=== PATIENT | female | born 1960 | race Caucasian/White ===

== ENCOUNTER → 2017-04-30 | Outpatient (CLI) | payer OTHER ==
[~2017-04-30] MED LIST: ALBU.083IS IH; ALBU90OI61 INH; AZIT250 PO; Albuterol2.5 MG/0.5 INH; BECL80OI INH; BUDE6HFA INH; CEPH500 PO; CHLO10 PO; CITA20 PO; Celexa40 MG PO; Diclofenac Pota50 MG PO; EPIPEN 2-P0.3 MG/0.3 IJ; ERGO50000 PO; GABA300 PO; HYDACE5 PO; HYDR1TAB94 PO; IBUP600 PO; LISI20 PO; LORA10 PO; LORA10ER PO; METF500 PO; MONT10T PO; MULVITMIND PO; Motion Sickness25 M1 PO; NAPR500 PO; OMEP40CA12 PO; PRED20 PO; Prednisone20 MG PO; SULTRIDS PO; TRAZ50 PO; WARF5 PO; ZESTORETIC 20-121 EA PO
== END | disposition home or self-care (01) ==
LOC: OLS 14:29
DX: N89.8 Other specified noninflammatory disorders of vagina (principal)
CPT/HCPCS: 87070; 87205

== ENCOUNTER → 2017-05-14 | Outpatient (CLI) | payer OTHER ==
[2017-05-17 10:18] LABS: HPV Genotype 16 Not Detected (NOTDET); HPV Genotype 18 Not Detected (NOTDET)
[2017-05-23 09:35] LABS: HPV High Risk Other Not Detected (NOTDET)
== END | disposition home or self-care (01) ==
LOC: OLS 14:06
PROVIDERS: Nurse Practitioner Women's Health
DX: Z12.4 Encounter for screening for malignant neoplasm of cervix (principal); Z91.89 Other specified personal risk factors, not elsewhere classified
CPT/HCPCS: 87624; G0123

== ENCOUNTER → 2017-08-22 | Outpatient (CLI) | payer OTHER | END | disposition home or self-care (01) | LOC: OLS 17:04 → LAB SHORT 17:04 | DX: N89.8 Other specified noninflammatory disorders of vagina (principal) | CPT/HCPCS: 87070; 87205 ==

== ENCOUNTER → 2017-09-05 | Outpatient (CLI) | payer OTHER | END | disposition home or self-care (01) | LOC: LAB 16:42 → LAB SHORT 16:42 | DX: N89.8 Other specified noninflammatory disorders of vagina (principal) | CPT/HCPCS: 87070; 87205 ==

== ENCOUNTER → 2018-09-19 | Outpatient (CLI) | payer MEDICARE, OTHER ==
[~2018-09-19] MED LIST changes: +ACET325 PO; +ALBU2.5V5 INH; +ATOR10 PO; +Aspirin EC81 MG PO; +CARV3.125; +CARV6.25 PO; +FERSU300 PO; +FURO20 PO; +MAGNESIUM400 M1 PO; +Micro-K10 MEQ PO; +Multivitamin1 EAC1 PO; +OXYC10TA19 PO; +Prilosec Otc20 MG PO; +Prinivil10 MG PO; +SODCHL1 PO
[2018-09-20 16:06] LABS: HPV 16 Negative (Negative); HPV 18 Negative (Negative); HPV OTHER HR TYPES Negative (Negative)
== END | disposition home or self-care (01) ==
LOC: LAB SHORT 13:09 → LAB 13:09
PROVIDERS: Nurse Practitioner Women's Health
DX: Z12.4 Encounter for screening for malignant neoplasm of cervix (principal); Z91.89 Other specified personal risk factors, not elsewhere classified
CPT/HCPCS: 87624; G0123

== ENCOUNTER → 2018-10-05 | Outpatient (CLI) | payer MEDICARE, OTHER ==
[2018-10-05 16:07] LABS: Source, Urine Clean Catch
[2018-10-05 16:39] LABS: Blood, Urine Neg (Neg); Glucose Qualitative, Urine Neg (Neg); Ketones, Urine Neg (Neg); Leukocyte Esterase, Urine 1+ (Neg); Nitrite, Urine Neg (Neg); Protein, Urine 2+ (Neg); Specific Gravity, Urine 1.015 (1.003-1.022); Urobilinogen, Urine 2+ (Normal)
[2018-10-05 16:45] LABS: Appearance, Urine Clear (Clear); Bilirubin, Urine 1+ (Neg); Color, Urine Amber (P-Yellow)
[2018-10-05 16:49] LABS: Bacteria Many /hpf; Squamous Epithelial Cells Many /hpf (Few)
== END | disposition home or self-care (01) ==
LOC: LAB 13:15 → LAB SHORT 13:15
PROVIDERS: Nurse Practitioner
DX: M62.81 Muscle weakness (generalized) (principal)
CPT/HCPCS: 81001

== ENCOUNTER → 2018-10-05 | Outpatient (CLI) | payer MEDICARE, OTHER ==
[2018-10-05 15:01] LABS: BASOPHILS ABSOLUTE AUTO 0.06 K/mm3 (0.00-0.23); BASOPHILS PERCENT AUTO 1 % (0-2); EOSINOPHILS ABSOLUTE AUTO 0.06 K/mm3 (0.00-0.68); EOSINOPHILS PERCENT AUTO 1 % (0-6); Hematocrit 39.8 % (33.0-51.0); Hemoglobin 13.6 g/dL (11.5-16.0); IMMATURE GRAN ABSOLUTE AUTO 0.03 K/mm3 (0.00-0.10); IMMATURE GRAN PERCENT AUTO 0 % (0-1); LYMPHOCYTES ABSOLUTE AUTO 1.89 K/mm3 (0.84-5.20); LYMPHOCYTES PERCENT AUTO 17 % (21-46); MONOCYTES ABSOLUTE AUTO 0.74 K/mm3 (0.16-1.47); MONOCYTES PERCENT AUTO 7 % (4-13); Mean Corpuscular HGB 32.5 pg (26.0-34.0); Mean Corpuscular HGB Conc 34.2 g/dL (31.5-36.5); Mean Corpuscular Volume 95 fL (80-100); Mean Platelet Volume 8.9 fL (9.1-12.4); NEUTROPHILS ABSOLUTE AUTO 8.36 K/mm3 (1.96-9.15); NEUTROPHILS PERCENT AUTO 75 % (41-73); Platelet Count 283 K/mm3 (150-400); RDW Coefficient Variation 12.5 % (11.7-14.2); RDW Standard Deviation 43.7 fL (35.1-46.3); Red Blood Cell Count 4.19 M/mm3 (3.80-5.20); White Blood Cell Count 11.14 K/mm3 (4.00-11.30)
[2018-10-05 15:14] LABS: Alanine Aminotransfer (ALT/SGP 45 U/L (12-78); Albumin, Blood 3.3 g/dL (3.4-5.0); Albumin/Globulin Ratio 0.8 (0.8-1.8); Alk Phos 121 U/L (50-136); Anion Gap 14 mmol/L (6-16); Aspartate Aminotrans (AST/SGOT 84 U/L (12-37); Bilirubin, Total 1.2 mg/dL (0.1-1.0); Blood Urea Nitrogen 6 mg/dL (8-24); Bun/Creatinine Ratio 10.5 (12.0-20.0); CO2, Blood 21 mmol/L (21-32); Calcium, Blood 8.7 mg/dL (8.5-10.1); Chloride, Blood 98 mmol/L (98-108); Creatinine, Blood 0.57 mg/dL (0.40-1.00); Globulin, Blood 4.2 g/dL (2.2-4.0); Glomerular Filtration Rate >60 (60-); Glucose, Blood 138 mg/dL (70-99); Potassium, Blood 3.1 mmol/L (3.5-5.5); Sodium, Blood 133 mmol/L (136-145); Total Protein, Blood 7.5 g/dL (6.4-8.2)
[2018-10-07 10:13] LABS: Antinuclear Antibody Screen Negative (Negative)
== END | disposition home or self-care (01) ==
LOC: LAB SHORT 14:15 → LAB 14:15
PROVIDERS: Nurse Practitioner
DX: R20.0 Anesthesia of skin (principal); M25.50 Pain in unspecified joint; M62.81 Muscle weakness (generalized)
CPT/HCPCS: 80053; 84443; 85025; 85651; 86038; 86140

== ENCOUNTER 2018-11-10 01:26 | Inpatient (IN) | payer MEDICARE, OTHER ==
[~2018-11-10] VITALS: Ht 162.6 cm; Wt 90.7 kg
[~2018-11-10 01:26] MED LIST changes: -ACET325 PO; -ALBU2.5V5 INH; -ATOR10 PO; -Aspirin EC81 MG PO; -CARV3.125; -CARV6.25 PO; -FERSU300 PO; -FURO20 PO; -MAGNESIUM400 M1 PO; -Micro-K10 MEQ PO; -Multivitamin1 EAC1 PO; -OXYC10TA19 PO; -Prilosec Otc20 MG PO; -Prinivil10 MG PO; -SODCHL1 PO
[2018-11-10] MEDS ORDERED: Prinivil10 MG PO (01:45)
[2018-11-10] MEDS ORDERED: CITA20 PO (01:45)
[2018-11-10] MEDS ORDERED: MONT10T PO (01:45)
[2018-11-10] MEDS ORDERED: ALBU90OI61 INH (01:46)
[2018-11-10] MEDS ORDERED: METF500 PO (01:46)
[2018-11-10] MEDS ORDERED: ALBU2.5V5 INH (01:46)
[2018-11-10] MEDS ORDERED: Prilosec Otc20 MG PO (01:46)
[2018-11-10] MEDS ORDERED: CARV3.125 (01:47)
[2018-11-10] MEDS ORDERED: GABA300 PO (01:47)
[2018-11-10] MEDS ORDERED: Multivitamin1 EAC1 PO (01:47)
[2018-11-10] MEDS ORDERED: Aspirin EC81 MG PO (01:47)
[2018-11-10] MEDS ORDERED: ATOR10 PO (01:47)
[2018-11-10] MEDS ORDERED: FERSU300 PO (01:48)
[2018-11-10 02:11] LABS: BASOPHILS ABSOLUTE AUTO 0.03 K/mm3 (0.00-0.23); BASOPHILS PERCENT AUTO 1 % (0-2); EOSINOPHILS ABSOLUTE AUTO 0.03 K/mm3 (0.00-0.68); EOSINOPHILS PERCENT AUTO 1 % (0-6); Hematocrit 36.9 % (33.0-51.0); Hemoglobin 13.2 g/dL (11.5-16.0); IMMATURE GRAN ABSOLUTE AUTO 0.01 K/mm3 (0.00-0.10); IMMATURE GRAN PERCENT AUTO 0 % (0-1); LYMPHOCYTES ABSOLUTE AUTO 1.92 K/mm3 (0.84-5.20); LYMPHOCYTES PERCENT AUTO 39 % (21-46); MONOCYTES ABSOLUTE AUTO 0.61 K/mm3 (0.16-1.47); MONOCYTES PERCENT AUTO 12 % (4-13); Mean Corpuscular HGB 33.4 pg (26.0-34.0); Mean Corpuscular HGB Conc 35.8 g/dL (31.5-36.5); Mean Corpuscular Volume 93 fL (80-100); Mean Platelet Volume 8.2 fL (9.1-12.4); NEUTROPHILS ABSOLUTE AUTO 2.33 K/mm3 (1.96-9.15); NEUTROPHILS PERCENT AUTO 47 % (41-73); Platelet Count 236 K/mm3 (150-400); RDW Coefficient Variation 13.2 % (11.7-14.2); RDW Standard Deviation 45.5 fL (35.1-46.3); Red Blood Cell Count 3.95 M/mm3 (3.80-5.20); White Blood Cell Count 4.93 K/mm3 (4.00-11.30)
[2018-11-10 02:13] LABS: Source, Urine Clean Catch
[2018-11-10 02:16] LABS: Appearance, Urine Clear (Clear); Bilirubin, Urine Neg (Neg); Blood, Urine 3+ (Neg); Color, Urine Yellow (P-Yellow); Glucose Qualitative, Urine Neg (Neg); Ketones, Urine Neg (Neg); Leukocyte Esterase, Urine Neg (Neg); Nitrite, Urine Neg (Neg); Protein, Urine Neg (Neg); Urobilinogen, Urine NORM (Normal)
[2018-11-10 02:23] LABS: Bacteria Mod /hpf; Red Blood Cells, Urine 0-2 /hpf (0-2); Squamous Epithelial Cells Few /hpf (Few); White Blood Cells, Urine 0-2 /hpf (0-5)
[2018-11-10 02:28] LABS: Ethanol (Alcohol), Blood, Med 194 mg/dL; Salicylate <1.7 mg/dL (2.8-20.0)
[2018-11-10 02:29] LABS: U Amphetamine Screen Not Detected; U Barbituate Screen Not Detected; U Benzodiazapine Screen Not Detected; U Buprenorphine Screen Not Detected; U Cannabinoids Screen Not Detected; U Cocaine Screen Not Detected; U Methadone Screen Not Detected; U Methamphetamine Screen Not Detected; U Opiates Screen Not Detected; U Oxycodone Screen Not Detected; U Phencyclidine Screen Not Detected; U Propoxyphene Screen Not Detected
[2018-11-10 02:37] LABS: Acetaminophen, Random <2.0 ug/mL (10.0-30.0); Alanine Aminotransfer (ALT/SGP 30 U/L (12-78); Albumin, Blood 3.9 g/dL (3.4-5.0); Alk Phos 121 U/L (50-136); Anion Gap 14 mmol/L (6-16); Aspartate Aminotrans (AST/SGOT 42 U/L (12-37); Bilirubin, Total 1.6 mg/dL (0.1-1.0); Blood Urea Nitrogen 3 mg/dL (8-24); Bun/Creatinine Ratio 7.3 (12.0-20.0); CO2, Blood 24 mmol/L (21-32); Calcium, Blood 8.3 mg/dL (8.5-10.1); Chloride, Blood 78 mmol/L (98-108); Creatinine, Blood 0.41 mg/dL (0.40-1.00); Glomerular Filtration Rate >60 (60-); Glucose, Blood 71 mg/dL (70-99); Sodium, Blood 116 mmol/L (136-145); Total Protein, Blood 7.9 g/dL (6.4-8.2)
[2018-11-10 04:22] LABS: Magnesium, Blood 1.2 mg/dL (1.6-2.4); Uric Acid, Blood 3.9 mg/dL (2.6-6.0)
[2018-11-10 04:23] LABS: Phosphorus, Blood 2.4 mg/dL (2.5-4.9); Thyroid Stimulating Hormone 2.04 uIU/mL (0.360-4.800)
[2018-11-10 05:22] LABS: Sodium, Urine, Random 7 mmol/L (20-110)
[2018-11-10 05:30] LABS: Osmolality, Urine 184 mos/kg (15-1400)
[2018-11-10] MEDS ORDERED: OXYC10TA19 PO (05:35)
--- NOTE | 2018-11-10 06:17 | NUR ---
ADMIT/SUMMARY PT ARRIVED AT 0515 VIA STRETCHER FROM ER MEDICAL NO TELE. PT ALERT TO SELF, DATE AND LOCATION AND REPORTING THAT SHE NEEDS TO URINATE. PT HAS BEEN UP TO BSC MULTIPLE TIMES, ORDER FOR STEWART OBTAINED AND PLACED WITH IMMEDIATE RETURN OF 800ML URINE IN BAG. PT CONTINUES TO REPORT THAT SHE NEEDS TO URINATE AND CONTINUES TO ASK TO GET UP TO URINATE. PT REASSURED, SHOW STEWART BAG, CHECKED LORENZO WHICH WAS DRY. PT PERSISTENT, TAB ALARM AND BED ALARM IN PLACE. VSS, AFEBRILE BANANA BAG INFUSING AT 200ML/HR.
[2018-11-10 09:00] LABS: Anion Gap 12 mmol/L (6-16); Blood Urea Nitrogen 2 mg/dL (8-24); Bun/Creatinine Ratio 5.6 (12.0-20.0); CO2, Blood 24 mmol/L (21-32); Calcium, Blood 7.8 mg/dL (8.5-10.1); Chloride, Blood 82 mmol/L (98-108); Creatinine, Blood 0.35 mg/dL (0.40-1.00); Glomerular Filtration Rate >60 (60-); Glucose, Blood 98 mg/dL (70-99); Potassium, Blood 3.2 mmol/L (3.5-5.5); Sodium, Blood 118 mmol/L (136-145)
[2018-11-10 09:23] LABS: Magnesium, Blood 1.4 mg/dL (1.6-2.4); Uric Acid, Blood 3.6 mg/dL (2.6-6.0)
[2018-11-10 09:54] LABS: Phosphorus, Blood 2.5 mg/dL (2.5-4.9); Potassium, Blood 3.2 mmol/L (3.5-5.5)
--- NOTE | 2018-11-10 10:05 | NUR ---
PATIENT RECEIVED TO ROOM ICU 9 VIA PCU BED AFTER RECEIVING REPORT FROM MARILYN SESAY, PATIENT IS AWAKE, ALERT BUT SLOW TO RESPOND, INSISTS FREQUENTLY THAT SHE HAS TO USE BSC DESPITE HAVING STEWART CATHETER, FOLLOWS COMMANDS, BUT AGAIN, IS VERY SLOW TO RESPOND, PATIENT WAS PLACED ON OPERATIONS AND MAINTENANCE TECHNICIAN, PICC LINE NEEDS TO BE PLACED D/T 3 % SODIUM INFUSION ORDERED BY DR. MCDONNELL, PATIENT WAS ORIENTED TO ROOM AND NEW ENVIRONMENT, CALL LIGHT GIVEN AND EXPLAINED, PATIENT VERBALIZED UNDERSTANDING, CALL LIGHT IN REACH, WILL CONTINUE TO MONITOR.
--- NOTE | 2018-11-10 10:15 | NUR ---
TRANSFER NOTE PT TO ICU FOR 3% SALINE DRIP. REPORT CALLED TO GALINA SANDERS IN ICU. PT AND BELONGINGS TRANSFERED VIA BED TO ICU.
--- NOTE | 2018-11-10 10:53 | NUR ---
KOKI CASTILLO RN, IN TO PLACE PICC LINE.
--- NOTE | 2018-11-10 12:12 | NUR ---
PATIENT CONTINUES TO BE UP TO BSC, EXPRESSES NEED TO URINATE, STATES "AT HOME I HAVE TO SIT A LITTLE LONGER SOMETIMES", HOWEVER PATIENT HAS STEWART CATHETER IN AND HAS BEEN EDUCATED ON A CONTINUOUS BASIS, VERBALIZES THAT SHE UNDERSTANDS THE CONCEPT OF A STEWART CATHETER, BUT IT IS APPARENT THAT SHE HAS MINIMAL TO NO UNDERSTANDING, 3 % SALINE INFUSION WAS STARTED AT 1140 AND STAT SODIUM ORDERED FOR [address] MCDONNELL, MAG SULFATE AND POTASSIUM ARE ALSO INFUSING TO REPLACE ELECTROLYTES, LUNCH GIVEN, PATIENT JUST STARES AT IT AND STATES "I HAVE NO APPETITE", ENCOURAGED TO EAT TO HELP WITH HEALING PROCESS, CALL LIGHT IN REACH, WILL CONTINUE TO MONITOR.
--- NOTE | 2018-11-10 13:08 | NUR ---
DAUGHTER LEXY CALLED FOR UPDATE ON PATIENT, UNABLE TO REACH AT THIS TIME, WILL ATTEMPT TO CALL AGAIN, CALL LIGHT IN REACH, WILL CONTINUE TO MONITOR.
--- NOTE | 2018-11-10 15:32 | NUR ---
PATIENT RECEIVED OXYCODONE 5 MG PO FOR BILATERAL KNEE PAIN, PATIENT OBSERVED TO BE SLIGHTLY SHAKY, CONTINUES TO WANT TO GET TO BSC AND URINATE, HAS STEWART CATHETER AND VERY GOOD URINE OUTPUT.
--- NOTE | 2018-11-10 17:55 | NUR ---
SHIFT SUMMARY NOTE: PATIENT IS BECOMING MORE MANIPULATIVE, ASKS FOR PAIN MEDICATION ON A REGULAR BASIS, THOUGHT PROCESS REMAINS IMPAIRED, CONTINUES ON 3 % NS, CHEMSTICKS AC/HS, NO COVERAGE NEEDED SO FAR, PATIENT HAS NOT APPETITE AND ONLY ATE A FEW BITES OF LUNCH AND DINNER, OTHERWISE COOPERATIVE AND ABLE TO FOLLOW COMMANDS, FOR DETAILS SEE SHIFT ASSESSMENT DOCUMENTATION AND NURSES NOTES, CALL LIGHT IN REACH, WILL CONTINUE TO MONITOR AND GIVE REPORT TO ONCOMING LOGISTICS SPECIALIST.
--- NOTE | 2018-11-10 18:44 | NUR ---
SODIUM RESULT 121, CALLED TO DR. MCDONNELL, NEW ORDERS RECEIVED.
[2018-11-11 05:26] LABS: Hematocrit 31.6 % (33.0-51.0)
[2018-11-11 06:05] LABS: Albumin, Blood 2.9 g/dL (3.4-5.0); Anion Gap 7 mmol/L (6-16); Blood Urea Nitrogen 3 mg/dL (8-24); Bun/Creatinine Ratio 7.4 (12.0-20.0); CO2, Blood 27 mmol/L (21-32); CPK Creatine Kinase 64 U/L (26-193); Calcium, Blood 7.9 mg/dL (8.5-10.1); Chloride, Blood 93 mmol/L (98-108); Glomerular Filtration Rate >60 (60-); Glucose, Blood 100 mg/dL (70-99); Magnesium, Blood 1.6 mg/dL (1.6-2.4); Phosphorus, Blood 2.2 mg/dL (2.5-4.9); Sodium, Blood 127 mmol/L (136-145)
--- NOTE | 2018-11-11 06:29 | NUR ---
SUMMARY PT RESTING IN BED. 3% SODIUM CHLORIDE WAS TURNED OFF AT [address] MCDONNELL. PT IS A/O TO PERSON, PLACE, AND TIME. NO OTHER CHANGES T/O THE NIGHT. NO REQUESTS THIS AM.
--- NOTE | 2018-11-11 15:04 | NUR ---
TRANSFER TO 364: REPORT GIVEN TO RUTH AT THIS TIME. AWAITING TRANSPORT TO UNIT. PT STABLE AT THIS TIME.
--- NOTE | 2018-11-11 15:33 | NUR ---
Per admit trigger, I met with Narda to offer education regarding advanced care planning. She has a POLST on file, but it lacks a physician's signature and date. Pt's spouse signed on pt's behalf. Narda does not recall when this document was completed. In fact, she was suprised to learn she had POLST on file. I provided education and offered to help her complete new form. She declined help at this time, and was more focused on her spouse "who isn't happen with me right now." She tells me that she intends to quit drinking. "I have done it before for 18 months." Narda seems a bit groggy and unfocused. I will remain available.
--- NOTE | 2018-11-11 19:31 | NUR ---
SHIFT SUMMARY. ICU TRANSFER TODAY. PT WITH INTERMITTENT CONFUSION, EASILY REORIENTS. CIWA 0 THUS FAR. RECIEVED ORDERS FROM DR. MIX TO D/C PAT POST BLADDER TRAINING. PT WITH PAIN TO BILATERAL KNEES, ICE PACKS APPLIED, MEDICATED PER EMAR. NO N/V, SOB.
--- NOTE | 2018-11-11 21:11 | NUR ---
BLADDER TRAINING DONE. STEWART CATHETER DC'D PER ORDER. PT. TOLERATED WELL. NO C/O PAIN OR DISCOMFORT. WILL CONT TO MONITOR.
--- NOTE | 2018-11-12 04:47 | NUR ---
SHIFT SUMMARY- PT. A&O, 1 ASSIST TO BSC. BLADDER TRAINING DONE AND STEWART CATHETER REMOVED PER ORDER, PT. TOLERATED WELL. PT. VOIDING WELL POST CATHETER REMOVAL. C/O OF KNEE PAIN. PAIN MEDICATION GIVEN PRN PER EMAR. ALSO C/O ITCHING IN HER FEET, CIWA SCORE OF 2. LIBRIUM GIVEN PER EMAR. PT. SLEPT T/O THE REST OF THE SHIFT. NO APPARENT DISTRESS NOTED OR SX'S OF WITHDRAWAL. CALL LIGHT WITHIN REACH AND SIDE RAILS UP X2.
[2018-11-12 05:10] LABS: Hematocrit 29.8 % (33.0-51.0); Hemoglobin 10.2 g/dL (11.5-16.0)
[2018-11-12 05:31] LABS: Alanine Aminotransfer (ALT/SGP 21 U/L (12-78); Albumin, Blood 2.8 g/dL (3.4-5.0); Albumin/Globulin Ratio 0.9 (0.8-1.8); Alk Phos 88 U/L (50-136); Anion Gap 6 mmol/L (6-16); Aspartate Aminotrans (AST/SGOT 29 U/L (12-37); Bilirubin, Total 1.7 mg/dL (0.1-1.0); Blood Urea Nitrogen 2 mg/dL (8-24); Bun/Creatinine Ratio 4.7 (12.0-20.0); CO2, Blood 28 mmol/L (21-32); Calcium, Blood 8.1 mg/dL (8.5-10.1); Chloride, Blood 97 mmol/L (98-108); Creatinine, Blood 0.42 mg/dL (0.40-1.00); Globulin, Blood 3.1 g/dL (2.2-4.0); Glomerular Filtration Rate >60 (60-); Glucose, Blood 92 mg/dL (70-99); Magnesium, Blood 1.4 mg/dL (1.6-2.4); Phosphorus, Blood 3.2 mg/dL (2.5-4.9); Potassium, Blood 3.6 mmol/L (3.5-5.5); Sodium, Blood 131 mmol/L (136-145); Total Protein, Blood 5.9 g/dL (6.4-8.2)
--- NOTE | 2018-11-12 19:06 | NUR ---
SHIFT SUMMARY. PT'S COGNITION APPEARS TO HAVE IMPROVED COMPARED TO YESTERDAY, PT IS MUCH LESS FORGETFUL, MEMORY HAS IMPROVED. PT WITH CHRONIC PAIN TO BILATERAL KNEES AND FEET. PT WITH CIWA 0-2 DURING SHIFT ALTHOUGH PT REQUESTED LIBRIUM THROUGHOUT SHIFT. NO SOB, N/V. PHYSICAL THERAPY EVAL COMPLETED, RECOMENDATION FOR HOME WITH HH. NO NEW CONCERNS.
[2018-11-13 04:45] LABS: Hematocrit 28.6 % (33.0-51.0); Hemoglobin 9.7 g/dL (11.5-16.0)
--- NOTE | 2018-11-13 05:03 | NUR ---
SHIFT SUMMARY- PT. A&O STATED IS FEELING BETTER. PAIN MED REQUEST 1X LAST NIGHT FOR CHRONIC KNEE PAIN. NO S/S OF WITHDRAWAL, CIWA SCORE OF 0 FOR THE SHIFT. PT. APPEARED TO HAVE SLEPT COMFORTABLY T/O THE NIGHT. DENIED ANY OTHER NEEDS. CALL LIGHT WITHIN REACH AND SIDE RAILS UP X2.
[2018-11-13 05:09] LABS: Albumin, Blood 2.8 g/dL (3.4-5.0); Anion Gap 6 mmol/L (6-16); Blood Urea Nitrogen 4 mg/dL (8-24); Bun/Creatinine Ratio 9.8 (12.0-20.0); CO2, Blood 28 mmol/L (21-32); Calcium, Blood 8.3 mg/dL (8.5-10.1); Chloride, Blood 98 mmol/L (98-108); Creatinine, Blood 0.41 mg/dL (0.40-1.00); Glomerular Filtration Rate >60 (60-); Glucose, Blood 96 mg/dL (70-99); Magnesium, Blood 1.3 mg/dL (1.6-2.4); Phosphorus, Blood 4.2 mg/dL (2.5-4.9); Potassium, Blood 3.6 mmol/L (3.5-5.5); Sodium, Blood 132 mmol/L (136-145)
--- NOTE | 2018-11-13 09:44 | NUR ---
CLARIFIED MAGNESIUM ORDER WITH DR. MIX, NOTIFIED HER THAT PT HAD ALREADY RECIEVED 2G MAG RIDER THIS AM, RECIEVED ORDER CHANGE 2G MAGNESIUM IV.
[2018-11-13] MEDS ORDERED: CARV6.25 PO (13:07)
[2018-11-13] MEDS ORDERED: ACET325 PO (13:08)
[2018-11-13] MEDS ORDERED: FURO20 PO (13:10)
[2018-11-13] MEDS ORDERED: Micro-K10 MEQ PO (13:12)
[2018-11-13] MEDS ORDERED: SODCHL1 PO (13:13)
[2018-11-13] MEDS ORDERED: MAGNESIUM400 M1 PO (13:14)
--- NOTE | 2018-11-13 14:49 | NUR ---
1425 PT DISCHARGED VIA [facility] W/C TRANSPORT. IV AND PICC REMOVED BY CN WITHOUT ISSUE. NEW RX FAXED TO [facility] PER PT REQUEST. D/C INSTRUCTIONS AND MEDICATIONS REVIEWED WITH PT AND COPY PROVIDED. PT EDUCATED ON ALCOHOL ABSTINENCE AND ENCOURAGED TO SEEK TREATMENT. NO NEW CHANGES OR CONCERNS.
== END 2018-11-13 14:23 | disposition home health service (06) | DRG 897 ==
LOC: ER 01:26 → EOR 01:27 → PCU 04:06 → ICUW 04:06 → PCU 04:06 → EOR 04:06 → EDBEDREQ 04:59 → PCU 05:10 → ICUW 10:05 → MEDS 11-11 15:17 → ENPENDDIS 11-13 11:00 → MEDS 11-13 14:23
PROVIDERS: Emergency Medicine; Internal Medicine Nephrology; ADMIT Internal Medicine
PROC: 02HV33Z Insertion of Infusion Device into Superior Vena Cava, Percutaneous Approach (ICD-10-PCS; principal; 2018-11-10)
PROC: 4A02X4A Measurement of Cardiac Electrical Activity, Guidance, External Approach (ICD-10-PCS; 2018-11-10)
DX: F10.288 Alcohol dependence with other alcohol-induced disorder (principal); E87.1 Hypo-osmolality and hyponatremia; F10.229 Alcohol dependence with intoxication, unspecified; Z79.82 Long term (current) use of aspirin; Z79.84 Long term (current) use of oral hypoglycemic drugs; Z87.891 Personal history of nicotine dependence; E87.6 Hypokalemia; J44.9 Chronic obstructive pulmonary disease, unspecified; E11.9 Type 2 diabetes mellitus without complications; Z86.73 Personal history of transient ischemic attack (TIA), and cerebral infarction without residual deficits; I10 Essential (primary) hypertension; E83.42 Hypomagnesemia; R33.9 Retention of urine, unspecified; E88.09 Other disorders of plasma-protein metabolism, not elsewhere classified; E87.70 Fluid overload, unspecified; Y90.6 Blood alcohol level of 120-199 mg/100 ml
CPT/HCPCS: 36415; 36569; 76770; 80048; 80053; 80069; 81001; 81025; 82533; 82550; 82947; 83036; 83735; 83930; 83935; 84100; 84132; 84295; 84300; 84443; 84550; 85014; 85018; 85025; 87086; 94640; 94760; 96365; 96366; 97162; 97530; 99285-25; A9270; C1751; G0480; J1650; J3411; J3475; J3480; J7042; J7060

== ENCOUNTER → 2019-01-16 | Outpatient (CLI) | payer OTHER ==
[~2019-01-16] MED LIST changes: +ACET325 PO; +ALBU2.5V5 INH; +ATOR10 PO; +Aspirin EC81 MG PO; +CARV3.125; +CARV6.25 PO; +FERSU300 PO; +FURO20 PO; +MAGNESIUM400 M1 PO; +Micro-K10 MEQ PO; +Multivitamin1 EAC1 PO; +OXYC10TA19 PO; +Prilosec Otc20 MG PO; +Prinivil10 MG PO; +SODCHL1 PO
[2019-01-16 13:52] LABS: Creatinine Urine 45.1 mg/dL (27.00-270.00); Protein, Urine Quantitative 8.3 mg/dL (0.0-11.9)
[2019-01-16 13:55] LABS: Microalbumin, Urine Quant. 5.92 mg/L (0.000-20.000)
== END | disposition home or self-care (01) ==
LOC: LAB SHORT 12:51 → LAB 12:51 → LAB FUT 01-09 12:00
PROVIDERS: Internal Medicine Nephrology
DX: N18.2 Chronic kidney disease, stage 2 (mild) (principal); D63.1 Anemia in chronic kidney disease; D51.8 Other vitamin B12 deficiency anemias; D52.8 Other folate deficiency anemias; D50.9 Iron deficiency anemia, unspecified
CPT/HCPCS: 81050; 82043; 82570; 84156

== ENCOUNTER 2019-04-29 18:55 | Inpatient (IN) | payer OTHER ==
[~2019-04-29] VITALS: Ht 160 cm; Wt 100.5 kg
[~2019-04-29 18:55] MED LIST changes: -ATOR10 PO; -Aspirin EC81 MG PO; -CARV6.25 PO; -MAGNESIUM400 M1 PO; -Micro-K10 MEQ PO; -Multivitamin1 EAC1 PO; -SODCHL1 PO
[2019-04-29 20:03] LABS: Ethanol (Alcohol), Blood, Med <3 mg/dL
[2019-04-29 20:23] LABS: BASOPHILS ABSOLUTE AUTO 0.03 K/mm3 (0.00-0.23); BASOPHILS PERCENT AUTO 1 % (0-2); EOSINOPHILS ABSOLUTE AUTO 0.06 K/mm3 (0.00-0.68); EOSINOPHILS PERCENT AUTO 1 % (0-6); Hemoglobin 11.6 g/dL (11.5-16.0); IMMATURE GRAN ABSOLUTE AUTO 0.02 K/mm3 (0.00-0.10); IMMATURE GRAN PERCENT AUTO 0 % (0-1); LYMPHOCYTES ABSOLUTE AUTO 1.75 K/mm3 (0.84-5.20); LYMPHOCYTES PERCENT AUTO 27 % (21-46); MONOCYTES ABSOLUTE AUTO 0.61 K/mm3 (0.16-1.47); MONOCYTES PERCENT AUTO 10 % (4-13); Mean Corpuscular HGB Conc 36.3 g/dL (31.5-36.5); Mean Corpuscular Volume 91 fL (80-100); Mean Platelet Volume 8.4 fL (9.1-12.4); NEUTROPHILS ABSOLUTE AUTO 3.93 K/mm3 (1.96-9.15); NEUTROPHILS PERCENT AUTO 62 % (41-73); Platelet Count 197 K/mm3 (150-400); Red Blood Cell Count 3.52 M/mm3 (3.80-5.20)
[2019-04-29 20:35] LABS: Influenza A Negative (NEGATIVE); Influenza B Negative (NEGATIVE)
[2019-04-29 20:38] LABS: Free Thyroxine 0.78 ng/dL (0.70-1.60); Troponin I <0.015 ng/mL (0.000-0.040)
[2019-04-29 20:46] LABS: Triiodothyronine, Free 2.01 pg/mL (2.18-3.98)
[2019-04-29 20:52] LABS: Alanine Aminotransfer (ALT/SGP 72 U/L (12-78); Albumin/Globulin Ratio 0.9 (0.8-1.8); Alk Phos 99 U/L (50-136); Anion Gap 18 mmol/L (6-16); Aspartate Aminotrans (AST/SGOT 92 U/L (12-37); Bilirubin, Total 0.9 mg/dL (0.1-1.0); Blood Urea Nitrogen 41 mg/dL (8-24); Bun/Creatinine Ratio 11.5 (12.0-20.0); CO2, Blood 19 mmol/L (21-32); Calcium, Blood 5.7 mg/dL (8.5-10.1); Chloride, Blood 81 mmol/L (98-108); Creatinine, Blood 3.58 mg/dL (0.40-1.00); Globulin, Blood 3.2 g/dL (2.2-4.0); Glomerular Filtration Rate 14 (60-); Glucose, Blood 79 mg/dL (70-99); Potassium, Blood 4.2 mmol/L (3.5-5.5); Sodium, Blood 118 mmol/L (136-145); Total Protein, Blood 6.2 g/dL (6.4-8.2)
[2019-04-29 21:20] LABS: PCO2 Arterial 35.8 mmHg (35-45); PO2 Arterial 87.3 mmHg (80-100); pH Blood Arterial 7.34 (7.35-7.45)
[2019-04-29 21:51] LABS: Beta-hydroxybutyrate 3.6 mg/dL (0.2-2.8)
[2019-04-29] MEDS ORDERED: MONT10T PO (22:17)
[2019-04-29] MEDS ORDERED: CITA20 PO (22:17)
[2019-04-29] MEDS ORDERED: ALBU90OI61 INH (22:18)
[2019-04-29] MEDS ORDERED: ATOR10 PO (22:18)
[2019-04-29] MEDS ORDERED: METF500 PO ×2 (22:18→22:28)
[2019-04-29] MEDS ORDERED: Aspirin EC81 MG PO (22:19)
[2019-04-29] MEDS ORDERED: Multivitamin1 EAC1 PO (22:19)
[2019-04-29] MEDS ORDERED: CARV3.125 PO (22:21)
[2019-04-29] MEDS ORDERED: SODCHL1 PO (22:24)
[2019-04-29] MEDS ORDERED: POTCHL20ER PO (22:24)
[2019-04-29] MEDS ORDERED: MAGNESIUM400 M1 PO (22:24)
[2019-04-29] MEDS ORDERED: Prinivil10 MG PO (22:25)
[2019-04-29] MEDS ORDERED: HYDCHL12.5 PO (22:26)
[2019-04-29] MEDS ORDERED: OMEP20ER PO (22:27)
[2019-04-29] MEDS ORDERED: GABA300 PO (22:28)
[2019-04-29] MEDS ORDERED: ALBU2.5V5 NEB (22:29)
[2019-04-29] MEDS ORDERED: HYDPAM25 PO (22:30)
[2019-04-29] MEDS ORDERED: DULO30 PO (22:31)
[2019-04-29 23:45] LABS: Bun/Creatinine Ratio 12.3 (12.0-20.0); Creatinine, Blood 3.34 mg/dL (0.40-1.00); Potassium, Blood 4.2 mmol/L (3.5-5.5)
--- NOTE | 2019-04-30 00:52 | NUR ---
PT TO ICU3 FROM ED AT 2155. PT TRANSFERRED TO ICU BED WITH SLIDER SHEET PT C/O DIZZINESS, HYPOTENSIVE AND ALTERED MOBILITY (WALKER) AT BASE. PT HAS GENERALIZED WEAKNESS L>R WITH HX OF CVA AND LEFT CRANIOTOMY (2005). PT IS ALERT AND ORIENTED TO DATE/PLACE/SITUATION. PT REPORTS DRINKING "6 BEERS" DAILY AND STATES SHE ALSO LIKES TO DRINK "VODKA" ON OCCASION. PER PT, AT HER HUSBANDS REQUEST PT STOPPED DRINKING 2 DAYS AGO. PT REPORTS THAT SHE HAS BEEN TO ALCOHOL REHAB ON 2 OCCASIONS AND THAT SHE HAS NEVER EXPERIENCED "WITHDRAWAL SYMPTOMS". PT HAS HAD NAUSEA/WEAKNESS/DIARRHEA FOR SEVERAL DAYS. WILL INITIATE CIWA PROTOCOL. PT PLACED IN CONTACT PRECAUTIONS TO RULE OUT C-DIF. PT HAS BEEN UNABLE TO PROVIDE STOOL OR URINE SAMPLE. PT REPORTS EXPERIENCING URINARY RETENTION BUT IS REFUSING STEWART CATHETER AT THIS TIME. WILL BLADDER SCAN NEEDED. PT HYPOTENSIVE, INFUSING 3/3 L NS BOLUS (2-ED, 1-ICU).
--- NOTE | 2019-04-30 01:53 | NUR ---
PT CONTINUES TO BE HYPOTENSIVE DESPITE FLUID BOLUS. ORDER TO START LEVOPHED, DR. GORDON AT BEDSIDE TO START CENTRAL LINE. PT REFUSES CENTRAL LINE AT THIS POINT DESPITE ADEQUATE EXPLANATION OF RISKS/BENEFITS. STARTING ADDITIONAL 500 ML/BOLUS. WILL REASSESS BLOOD PRESSURE AND DISCUSS PLAN OF CARE IN ONE HOUR PER PT REQUEST.
--- NOTE | 2019-04-30 03:58 | NUR ---
PT REMAINS HYPOTENSIVE. ADDITIONAL 500 ML NS BOLUS INFUSING. DISCUSSED CENTRAL LINE PLACEMENT AND STARTING PRESSORS, PT REFUSES LINE PLACEMENT AND PRESSORS AT THIS TIME.
[2019-04-30 04:26] LABS: Hematocrit 26.9 % (33.0-51.0); Hemoglobin 9.6 g/dL (11.5-16.0); Mean Corpuscular HGB 32.7 pg (26.0-34.0); Mean Corpuscular HGB Conc 35.7 g/dL (31.5-36.5); Mean Corpuscular Volume 92 fL (80-100); Mean Platelet Volume 8.3 fL (9.1-12.4); Platelet Count 148 K/mm3 (150-400); RDW Standard Deviation 42.2 fL (35.1-46.3); Red Blood Cell Count 2.94 M/mm3 (3.80-5.20); White Blood Cell Count 6.83 K/mm3 (4.00-11.30)
[2019-04-30 04:50] LABS: Albumin, Blood 2.4 g/dL (3.4-5.0); Albumin/Globulin Ratio 0.9 (0.8-1.8); Bilirubin, Total 0.9 mg/dL (0.1-1.0); Bun/Creatinine Ratio 11.2 (12.0-20.0); Calcium, Blood 5.4 mg/dL (8.5-10.1); Creatinine, Blood 3.31 mg/dL (0.40-1.00); Globulin, Blood 2.7 g/dL (2.2-4.0); Potassium, Blood 3.9 mmol/L (3.5-5.5); Total Protein, Blood 5.1 g/dL (6.4-8.2)
--- NOTE | 2019-04-30 06:00 | NUR ---
PT REMAINS HYPOTENSIVE. DISCUSSED BENEFIT OF CENTRAL LINE PLACEMENT AND STARTING PRESSORS, PT CONTINUES TO REFUSE
--- NOTE | 2019-04-30 06:32 | NUR ---
SHIFT SUMMARY PT ALERT AND ORIENTED, REMAINS HYPOTENSIVE DESPITE FLUID BOLUS. PT CONTINUES TO REFUSE CENTRAL LINE PLACEMENT AND PRESSORS. NO URINARY OUTPUT THIS SHIFT, BLADDER SCAN SHOWS 200 ML URINE. PT ATTEMPTED TO HAVE BOWEL MOVEMENT/URINATE ON BEDPAN ON MULTIPLE OCCASIONS WITHOUT SUCCESS. PT REFUSES STEWART CATHETER AT THIS TIME. PT RECEIVING CALCIUM GLUCONATE INFUSION AND TREATED FOR HYPOGLYCEMIA WITH 1 AMP D50. SEE PREVIOUS NOTES FROM THIS SHIFT. WILL REPORT TO DAYSHIFT NURSE.
--- NOTE | 2019-04-30 07:30 | NUR ---
START OF SHIFT NOTE: RECEIVED REPORT FROM ABIOLA SANDERS RN, ASSUMED CARE, PATIENT IS RESTING WITH EYES CLOSED, OPEN SPONTANEOUSLY TO SPEECH, PATIENT IS ALERT AND ORIENTED TO SELF, SURROUNDINGS, PLACE, PERSON, VAGUE ON DATE AND TIME, SLOW TO RESPOND, LUNG SOUNDS ARE CLEAR BUT DIMINISHED, HEART SOUNDS DISTANT, SBP'S LOW FROM 60'S TO 80'S, PATIENT APPEARS ASYMPTOMATIC, TOOK PRILOSEC WITHOUT ANY PROBLEMS SWALLOWING, BG 87, NO COVERAGE REQUIRED, PATIENT MAY REQUIRE PICC, KARTHIK MCCARTY, CHARGE NURSE, SPOKE WITH PATIENT ABOUT OVER THE WIRE EXCHANGE FOR PICC IN ORDER TO GIVE HER PRESSORS, PATIENT HAS NOT URINATED YET, REFUSES BLADDER SCAN, STRAIGHT CATH/STEWART, 2+TO 3+ EDEMA ON BILATERAL LOWER EXTREMITIES, SIGNIFICANT OTHER AT BEDSIDE, CALL LIGHT IN REACH, WILL CONTINUE TO MONITOR.
--- NOTE | 2019-04-30 08:13 | NUR ---
PATIENT AFEBRILE AND DENIES PAIN AT THIS TIME.
--- NOTE | 2019-04-30 08:24 | NUR ---
THIS RN CALLED DR. MCCLENDON TO OBTAIN ORDER FOR PICC LINE AND ALSO INCREASE IV FLUIDS, WILL CONTINUE TO MONITOR.
--- NOTE | 2019-04-30 08:38 | NUR ---
PATIENT PLACED ON BED MOORE.
--- NOTE | 2019-04-30 12:04 | NUR ---
DR. MCCLENDON IN TO SEE PATIENT, NEW ORDERS RECEIVED, PATIENT ASKED FOR "REAL" FOOD, BUT WILL HAVE TO HAVE CLEAR LIQUID DIET UNTIL TOMORROW, DR. MCCLENDON STATED TO "START LEVOPHED IF SBP DOES NOT INCREASE BY THIS AFTERNOON".
[2019-04-30 12:17] LABS: Bun/Creatinine Ratio 11.4 (12.0-20.0); Calcium, Blood 6.1 mg/dL (8.5-10.1); Creatinine, Blood 3.25 mg/dL (0.40-1.00); Potassium, Blood 3.7 mmol/L (3.5-5.5)
--- NOTE | 2019-04-30 14:05 | NUR ---
PATIENT IS SLEEPING WITH SOME LOUD SNORES, SBP'S IN 70'S TO 80'S, DR. MCCLENDON AWARE, PATIENT IS ASYMPTOMATIC, LEVOPHED AVAILABLE IF NEEDED, MAGNESIUM AND CALCIUM REPLACED AGAIN THIS AFTERNOON, PATIENT IS CALM AND COOPERATIVE AT THIS TIME, HAS NOT VOIDED YET, FREQUENT BLADDER SCANS SHOWED VOLUME LESS THAN 300, DR. MCCLENDON AWARE, PATIENT REFUSES STEWART OR STRAIGHT CATH, REMAINS AFEBRILE, RECEIVED TYLENOL 650 MG PO FOR PAIN IN LEFT KNEE AND HEEL, CALL LIGHT IN REACH, WILL CONTINUE TO MONITOR.
--- NOTE | 2019-04-30 15:50 | NUR ---
PATIENT'S DAUGHTERS IN TO SEE PATIENT, UPDATE ON PATIENT CONDITION WAS PROVIDED, DAUGHTER STATED THAT PATIENT HAD LEFT CRANIOTOMY 3 YEARS AGO AND THE PIECES THAT WERE PLACED IN BRAIN APPEAR TO HAVE SHIFTED, DR. MCCLENDON WAS NOTIFIED ON THIS FACT AND CT SCAN WITHOUT CONTRAST WAS ORDERED.
--- NOTE | 2019-04-30 16:09 | NUR ---
PATIENT AGREED TO HAVE STEWART CATHETER PLACED AFTER HER DAUGHTER SPOKE WITH HER.
--- NOTE | 2019-04-30 16:30 | NUR ---
PATIENT AGREED TO HAVE STEWART CATHETER PLACED, PATIENT IMMEDIATELY HAD 350 CC OF CLEAR DARK YELLOW URINE OUT.
[2019-04-30 16:44] LABS: Source, Urine Clean Catch
--- NOTE | 2019-04-30 16:45 | NUR ---
PATIENT TO CT FOR AN ORDERED HEAD CT WITHOUT CONTRAST, PATIENT PLACED ON MONITOR, THIS RN WITH PATIENT, TOLERATED WELL, RETURNED TO ROOM AND PLACED ON HARDWIRE MONITOR, PATIENT EATING DINNER.
[2019-04-30 17:00] LABS: Blood, Urine 1+ (Neg); Glucose Qualitative, Urine Neg (Neg); Ketones, Urine Neg (Neg); Leukocyte Esterase, Urine Neg (Neg); Nitrite, Urine Neg (Neg); Protein, Urine Neg (Neg); Urobilinogen, Urine NORM (Normal)
[2019-04-30 17:06] LABS: Appearance, Urine Clear (Clear); Bilirubin, Urine 1+ (Neg); Color, Urine Yellow (P-Yellow)
[2019-04-30 17:08] LABS: Bacteria Few /hpf; Red Blood Cells, Urine 0-2 /hpf (0-2); Squamous Epithelial Cells Rare /hpf (Few); White Blood Cells, Urine Not Seen /hpf (0-5)
[2019-04-30 17:55] LABS: Bun/Creatinine Ratio 12.4 (12.0-20.0); Calcium, Blood 6.2 mg/dL (8.5-10.1); Creatinine, Blood 2.98 mg/dL (0.40-1.00); Potassium, Blood 3.9 mmol/L (3.5-5.5)
--- NOTE | 2019-04-30 17:56 | NUR ---
SHIFT SUMMARY NOTE: NO ACUTE EVENTS DURING THIS SHIFT, PATIENT IS ALERT AND ORIENTED, FOLLOWS ALL COMMANDS, ANSWERS ALL QUESTIONS APPROPRIATELY, HOWEVER, DAUGHTERS REPORT THAT SHE IS NOT AT HER BASELINE AND SLIGHTLY OFF, PATIENT HAD A LEFT CRANIOTOMY ABOUT 3 YEARS AGO AND DAUGHTERS SUSPECT THAT PLATES THAT WERE INSERTED MAY HAVE SHIFTED, PATIENT'S SBP IN 80'S TO 90'S WHILE SITTING UP, ISTRATE AWARE OF LOW SBP, LEVOPHED IS AVAILABLE IF NEEDED, HOWEVER PATIENT IS NOT LIGHTHEADED, DIZZY, UNRESPONSIVE, PICC LINE IN SIENNA, PATIENT ALSO AGREED TO HAVE STEWART CATHETER PLACED AFTER HAVING REFUSED EARLIER TODAY, FREQUENT BLADDER SCANS SHOWED ONLY 200 CC'S, BUT AFTER STEWART WAS PLACED PATIENT HAD IMMEDIATELY 350 CC OUT, PATIENT WAS ALSO TAKEN TO CT HEAD WITHOUT CONTRAST, TOLERATED WELL, ON A CLEAR LIQUID DIET, REMAINS AFEBRILE, RECEIVED 650 MG OF TYLENOL PO ONCE FOR LEFT KNEE AND HEEL PAIN, FOR DETAILS SEE SHIFT ASSESSMENT AND NURSES NOTES, CALL LIGHT IN REACH, WILL CONTINUE TO MONITOR AND GIVE REPORT TO ONCOMING TOLL BRIDGE OPERATOR.
--- NOTE | 2019-04-30 19:30 | NUR ---
ASSUMPTION OF CARE: PATIENT ALERT AND ANSWERING APPROPRIATLY, PRESSURED SPEECH NOTED ALONG WITH IMPULSIVE MOVEMENTS. PATIENT BP RUNNING LOW ALL SHIFT PER RN REPORT, BP CYCLING Q15 MINUTES, PATIENT ASYMPTOMATIC WITH ALL OTHER VSS, LEVOPHED PRN. PATIENT SKIN C/D/I, STEWART CATHETER PATENET AND DRAINING TO GRAVITY. SIENNA TRIPLE LUMEN PICC IS PATIENT WITH IVF RUNNING, ALL PORTS FLUSH WELL AND CAPS CHANGED. DRESSING HAS MILD SEEPAGE UNDER DRESSING FROM INSERTION, LENGTH AT 3CM PER INSERTION, WILL CHANGE DRESSING THIS SHIFT.
[2019-04-30 23:45] LABS: Magnesium, Blood 1.5 mg/dL (1.6-2.4)
[2019-04-30 23:52] LABS: Bun/Creatinine Ratio 13.1 (12.0-20.0); Calcium, Blood 5.8 mg/dL (8.5-10.1); Creatinine, Blood 2.68 mg/dL (0.40-1.00); Potassium, Blood 3.6 mmol/L (3.5-5.5)
[2019-05-01 00:20] LABS: PCO2 Arterial 40.8 mmHg (35-45); PO2 Arterial 85.6 mmHg (80-100); pH Blood Arterial 7.22 (7.35-7.45)
[2019-05-01 04:30] LABS: BASOPHILS ABSOLUTE AUTO 0.04 K/mm3 (0.00-0.23); BASOPHILS PERCENT AUTO 1 % (0-2); EOSINOPHILS ABSOLUTE AUTO 0.15 K/mm3 (0.00-0.68); EOSINOPHILS PERCENT AUTO 3 % (0-6); Hematocrit 26.7 % (33.0-51.0); Hemoglobin 9.2 g/dL (11.5-16.0); IMMATURE GRAN ABSOLUTE AUTO 0.02 K/mm3 (0.00-0.10); IMMATURE GRAN PERCENT AUTO 0 % (0-1); LYMPHOCYTES PERCENT AUTO 32 % (21-46); MONOCYTES ABSOLUTE AUTO 0.61 K/mm3 (0.16-1.47); MONOCYTES PERCENT AUTO 12 % (4-13); Mean Corpuscular HGB 32.3 pg (26.0-34.0); Mean Corpuscular HGB Conc 34.5 g/dL (31.5-36.5); Mean Corpuscular Volume 94 fL (80-100); Mean Platelet Volume 8.5 fL (9.1-12.4); NEUTROPHILS PERCENT AUTO 53 % (41-73); Platelet Count 156 K/mm3 (150-400); RDW Coefficient Variation 13.1 % (11.7-14.2); RDW Standard Deviation 44.6 fL (35.1-46.3); Red Blood Cell Count 2.85 M/mm3 (3.80-5.20); White Blood Cell Count 5.32 K/mm3 (4.00-11.30)
[2019-05-01 04:53] LABS: Albumin, Blood 2.4 g/dL (3.4-5.0); Bilirubin, Total 1.2 mg/dL (0.1-1.0); Bun/Creatinine Ratio 15.5 (12.0-20.0); Calcium, Blood 6.4 mg/dL (8.5-10.1); Creatinine, Blood 2.19 mg/dL (0.40-1.00); Globulin, Blood 2.5 g/dL (2.2-4.0); Magnesium, Blood 2.1 mg/dL (1.6-2.4); Potassium, Blood 3.7 mmol/L (3.5-5.5); Total Protein, Blood 4.9 g/dL (6.4-8.2)
[2019-05-01 05:35] LABS: PCO2 Arterial 38.3 mmHg (35-45); PO2 Arterial 102 mmHg (80-100); pH Blood Arterial 7.22 (7.35-7.45)
--- NOTE | 2019-05-01 06:28 | NUR ---
SHIFT SUMMARY: PATIENT STARTED ON LEVOPHED AT APPROX 2156 04/30/19. PATIENT NOW MAINTAINING STEADY SBP APPROX 100 TO 110 AND MAP AVERAGING 75 TO 80. PAIENT ASYMPTOMATIC, ALL OTHER VSS. PATIENT UO INCREASING STEADILY THROUGHOUT THE SHIFT. PATIENT PH 7.22, MD MCDONNELL AWARE WITH ORDERS RECIEVED. PATIENT ALERT AND ORIENTED AND USING CALL LIGHT APPROPRIATLY, BED LOW AND LOCKED. PATIENT SWALLOWING MEDICATION WITH THIN LIQUID WELL, NO HOARSE WET VOICE OR COUGHING NOTED. PATIENT REQUESTING A CHANGE OF DIET, MD MCDONNELL DEFERS TO HOSPITALIST. PICC LINE DRESSING AND CAPS CHANGED.
--- NOTE | 2019-05-01 07:43 | NUR ---
START OF SHIFT NOTE: RECEIVED REPORT FROM PB RN/LINA RN, ASSUMED CARE, PATIENT IS AWAKE, ALERT AND ORIENTED, AFEBRILE, DENIES PAIN, LUNG SOUNDS CLEAR, SR HR 80'S, SBP CONTINUES IN 60'S TO 80'S DESPITE LEVOPHED, NOW INFUSING AT 3MCG, PATIENT ASYMPTOMATIC, BOWEL TONES PRESENT BUT HYPOACTIVE, STEWART CATHETER IN PLACE DRAINING MODERATE AMOUNTS OF LIGHT YELLOW URINE, PEDAL PULSES PALPABLE, PATIENT IS ASKING FOR FOOD, CALL LIGHT IN REACH, WILL CONTINUE TO MONITOR.
--- NOTE | 2019-05-01 09:34 | NUR ---
CALLED DR. MCDONNELL AND ADDRESSED DIET ISSUE, PATIENT KEEPS ASKING FOR REAL FOOD, DR. MCDONNELL OK WITH DIET IF HOSPITALIST IS OK WITH IT.
--- NOTE | 2019-05-01 13:51 | NUR ---
PATIENT RESTING COMFORTABLY, CONTINUES ON LEVOPHED AT 4 MCG, VSS, SBP IN 90'S, WATCHING TV, AFEBRILE, CALL LIGHT IN REACH, WILL CONTINUE TO MONITOR.
[2019-05-01 14:51] LABS: Bun/Creatinine Ratio 19.5 (12.0-20.0); Calcium, Blood 6.3 mg/dL (8.5-10.1); Creatinine, Blood 1.49 mg/dL (0.40-1.00); Potassium, Blood 3.5 mmol/L (3.5-5.5)
--- NOTE | 2019-05-01 15:00 | NUR ---
DR. MCDONNELL NOTIFIED ABOUT PATIENT LABS, NO NEW ORDERS RECEIVED.
--- NOTE | 2019-05-01 17:43 | NUR ---
SHIFT SUMMARY NOTE: NO ACUTE EVENTS DURING THIS SHIFT, PATIENT IS MUCH MORE ALERT AND TALKATIVE, VERY COOPERATIVE, HOWEVER REMAINS ON LEVOPHED AT 3 MCG WITH SBP'S IN 80'S TO LOW 100'S, SBP'S ARE POSITIONAL, OTHERWISE VSS, AFEBRILE, RECEIVED TYLENOL 650 MG FOR LEFT LEG AND KNEE PAIN WITH GOOD RESULTS, URINE OUTPUT HAS MUCH INCREASED AND PATIENT HAD 1600 CC CATHETER OUTPUT, PATIENT RECEIVED BEDBATH, UP IN CHAIR FOR DINNER WITH 2 ASSIST, DID WELL, WEAK BUT STEADY GAIT, DAUGHTER IN TO VISIT, UPDATE PROVIDED, PATIENT CONTINUES ON BANANA BAG, SODIUM BICARBONATE AND ZOSYM WAS ADDED D/T HER GASTERITIS, FOR DETAILS SEE SHIFT ASSESSMENT AND NURSES NOTES, CALL LIGHT IN REACH, WILL CONTINUE TO MONITOR.
--- NOTE | 2019-05-01 20:58 | NUR ---
[place] of Care: Care assumed at 1900hr. Patient alert and oriented x4, sitting upright in chair watching TV. Transferred via 2-person assist to toilet, then to bed without difficulty. C/o pain to bilateral knees (chronic), effectively managed with prn tylenol, given late day shift. Patient also stated neurontin is helpful for knee pain, routine scheduled HS dose given. VSS, denies dyspnea/SOB, O2-98-100% on RA. Levophed gtt at 3mcg/min, decreased to 2mcg/min at approx 2030hr, will monitor and titrate as indicated. PICC line to SIENNA patent and intact, small amount of blood drainage, plan to change dressing early this shift. Barnes cath patent and intact, draining clear yellow urine. Received phone call from Dr. Beasley at this time, received order for STAT renal functional panel now and to call by 2200hr with results. Call light in reach, makes needs known. Will continue to monitor for pain, safety, comfort.
[2019-05-01 21:37] LABS: Albumin, Blood 2.4 g/dL (3.4-5.0); Anion Gap 8 mmol/L (6-16); Blood Urea Nitrogen 27 mg/dL (8-24); CO2, Blood 21 mmol/L (21-32); Calcium, Blood 6.2 mg/dL (8.5-10.1); Chloride, Blood 98 mmol/L (98-108); Creatinine, Blood 1.23 mg/dL (0.40-1.00); Glomerular Filtration Rate 48 (60-); Glucose, Blood 119 mg/dL (70-99); Phosphorus, Blood 2.7 mg/dL (2.5-4.9); Potassium, Blood 3.7 mmol/L (3.5-5.5); Sodium, Blood 127 mmol/L (136-145)
--- NOTE | 2019-05-01 21:59 | NUR ---
Orders per Dr. Beasley: Called Dr. Beasley at this time with renal functional panel results. Received orders to D/C bicarb gtt, start NS at 75ml/hr, and given 1amp calcium gluconate IV now.
[2019-05-02 04:03] LABS: BASOPHILS ABSOLUTE AUTO 0.03 K/mm3 (0.00-0.23); BASOPHILS PERCENT AUTO 1 % (0-2); EOSINOPHILS ABSOLUTE AUTO 0.13 K/mm3 (0.00-0.68); EOSINOPHILS PERCENT AUTO 3 % (0-6); Hematocrit 23.8 % (33.0-51.0); Hemoglobin 8.4 g/dL (11.5-16.0); IMMATURE GRAN ABSOLUTE AUTO 0.01 K/mm3 (0.00-0.10); IMMATURE GRAN PERCENT AUTO 0 % (0-1); LYMPHOCYTES ABSOLUTE AUTO 1.32 K/mm3 (0.84-5.20); LYMPHOCYTES PERCENT AUTO 30 % (21-46); MONOCYTES ABSOLUTE AUTO 0.55 K/mm3 (0.16-1.47); MONOCYTES PERCENT AUTO 12 % (4-13); Mean Corpuscular HGB 33.1 pg (26.0-34.0); Mean Corpuscular HGB Conc 35.3 g/dL (31.5-36.5); Mean Corpuscular Volume 94 fL (80-100); Mean Platelet Volume 8.6 fL (9.1-12.4); NEUTROPHILS ABSOLUTE AUTO 2.43 K/mm3 (1.96-9.15); NEUTROPHILS PERCENT AUTO 54 % (41-73); Platelet Count 133 K/mm3 (150-400); RDW Coefficient Variation 13.2 % (11.7-14.2); RDW Standard Deviation 45.1 fL (35.1-46.3); Red Blood Cell Count 2.54 M/mm3 (3.80-5.20); White Blood Cell Count 4.47 K/mm3 (4.00-11.30)
[2019-05-02 04:28] LABS: Albumin, Blood 2.1 g/dL (3.4-5.0); Anion Gap 8 mmol/L (6-16); Blood Urea Nitrogen 26 mg/dL (8-24); Bun/Creatinine Ratio 24.1 (12.0-20.0); CO2, Blood 22 mmol/L (21-32); CPK Creatine Kinase 357 U/L (26-193); Calcium, Blood 6.5 mg/dL (8.5-10.1); Chloride, Blood 100 mmol/L (98-108); Creatinine, Blood 1.08 mg/dL (0.40-1.00); Glomerular Filtration Rate 56 (60-); Glucose, Blood 73 mg/dL (70-99); Magnesium, Blood 1.6 mg/dL (1.6-2.4); Phosphorus, Blood 2.6 mg/dL (2.5-4.9); Potassium, Blood 3.8 mmol/L (3.5-5.5); Sodium, Blood 130 mmol/L (136-145); Uric Acid, Blood 11.9 mg/dL (2.6-6.0)
--- NOTE | 2019-05-02 06:52 | NUR ---
Shift Summary: Patient slept on/off throughout shift. Easily roused to verbal stimuli, oriented x4 when awake. C/O pain to lt upper leg, no swelling or redness noted. Pain effectively managed with prn tylenol and ice packs. VS remain stable. Levophed gtt placed on stand-by at approx 0200hr, systolic BP occasionally decreased to 80's, MAP greater than 60, asymptomatic and continues to produce adequate amount of urine. Received additional orders per Dr. Beasley this morning to decreased NS from 75ml/hr to 50ml/hr and for x1 amp of calcium gluconate. Barnes remains patent and intact, draining clear yellow urine. Call light in reach, makes needs known. Will continue to monitor until report to day shift RN.
--- NOTE | 2019-05-02 10:33 | NUR ---
CARE ASSUMED ASSESSMENT COMPLETED. PT ALERT AND ORIENTED X4, PLEASANT AND COOPERATIVE. BP REMAINS HYPOTENSIVE WITH SBP 80-90'S, MAP 65-70'S, PT ASYMPTOMATIC, OTHER VSS. ABX AND BANANA BAG ADMINISTERED PER ORDERS, PT GIVEN TYLENOL PER REQUEST FOR CHRONIC LEFT KNEE/FOOT PAIN, PT DENIES OTHER PAIN SOURCE AT THIS TIME. NO S/SX ETOH W/D, PT REPORTS LAST DRINK WAS SUNDAY, 5 DAYS AGO. AT BEDSIDE, PT DENIES C/O.
--- NOTE | 2019-05-02 11:57 | NUR ---
DR. ROYTRATE IN TO SEE PATIENT, NEW ORDERS, PT NOW PCU STATUS. BP REMAINS HYPOTENSIVE, SBP 70'S-90,S, MAP'S >60, PT ASYMPTOMATIC. REMAINS ALERT AND ORIENTED, PLEASANT AND COOPERATIVE. VISITOR AT BEDSIDE. UPDATED ON PATIENT STATUS.
--- NOTE | 2019-05-02 14:51 | NUR ---
PT UP TO BR FOR BM WITH NO RESULTS, DR. MCCLENDON AWARE OF PT'S STATED CONSTIPATION. PT UP TO SHOWER WITH ASSIST, NO DIZZINESS, SOB, OR CP WHILE OOB. SBP 80'S-90'S, PT ALERT AND ORIENTED X4, PLEASANT AND COOPERATIVE. VISITORS AT BEDSIDE T/O DAY. PT TOELRATING PO WELL, DENIES NEEDS OR C/O. DR. MCCLENDON CALLED REGARDING CONTINUED HYPOTENSION, NO NEW ORDERS AT THIS TIME.
--- NOTE | 2019-05-02 19:18 | NUR ---
PT SLEPT WELL THIS AFTERNOON, WOKEN UP FOR DINNER, DENIES C/O. SBP LOW 100'S-60'S AT THIS TIME. PT HAS BEEN ASYMPTOMATIC OF HYPOTENSION T/O SHIFT. HAD 2 BM'S TODAY, GOOD URINE OUTPUT, GOOD APPETITE. PT PLEASANT AND COOPERATIVE T/O SHIFT, ORIENTED X4, DENIES C/O OR NEEDS AT THIS TIME. REPORT TO ONCOMING SHIFT.
[2019-05-03 03:29] LABS: Hematocrit 24.5 % (33.0-51.0); Hemoglobin 8.4 g/dL (11.5-16.0); Mean Corpuscular HGB 32.6 pg (26.0-34.0); Mean Corpuscular HGB Conc 34.3 g/dL (31.5-36.5); Mean Corpuscular Volume 95 fL (80-100); Mean Platelet Volume 8.9 fL (9.1-12.4); Platelet Count 144 K/mm3 (150-400); RDW Coefficient Variation 13.6 % (11.7-14.2); RDW Standard Deviation 45.8 fL (35.1-46.3); Red Blood Cell Count 2.58 M/mm3 (3.80-5.20); White Blood Cell Count 4.54 K/mm3 (4.00-11.30)
[2019-05-03 03:49] LABS: Albumin, Blood 2.2 g/dL (3.4-5.0); Anion Gap 5 mmol/L (6-16); Blood Urea Nitrogen 18 mg/dL (8-24); Bun/Creatinine Ratio 25.3 (12.0-20.0); CO2, Blood 25 mmol/L (21-32); Calcium, Blood 6.9 mg/dL (8.5-10.1); Chloride, Blood 103 mmol/L (98-108); Creatinine, Blood 0.71 mg/dL (0.40-1.00); Glomerular Filtration Rate >60 (60-); Glucose, Blood 72 mg/dL (70-99); Magnesium, Blood 1.3 mg/dL (1.6-2.4); Phosphorus, Blood 1.7 mg/dL (2.5-4.9); Potassium, Blood 3.8 mmol/L (3.5-5.5); Sodium, Blood 133 mmol/L (136-145)
--- NOTE | 2019-05-03 06:10 | NUR ---
SHIFT SUMMARY PATIENT SLEPT WELL THROUGH NIGHT. GAVE IMMODIUM EARLIER IN SHIFT FOR BOUTS OF DIARRHEA. VSS. ELECTROLYTES ORDERED PER DR. MCDONNELL, AWAITING MEDS FROM PHARMACY. WILL CONTINUE TO MONITOR.
--- NOTE | 2019-05-03 07:20 | NUR ---
ASSUMED CARE OF PT AT 0700. REPORT FROM RENO SANDERS. PT AWAKE IN BED. DENIES NEEDS OR COMPLAINTS. A&OX 4. ANSWERS QUESTIONS APPROPRIATELY, FOLLOWS COMMANDS. LUNGS CLEAR. PT P/W/D. ABD ROUND, SOFT, NON TENDER. BT X 4. PT DENIES N/V OR ABD PAIN. REPORTS DIARRHEA LAST NOC, STATES SHE WAS UP FREQUENTLY TO USE BATHROOM, GIVEN IMODIUM LAST NOC c RELIEF. PICC TO LUE. DRESSING C/D/I. VSS. WILL CONTINUE TO MONITOR.
--- NOTE | 2019-05-03 16:11 | NUR ---
SHIFT SUMMARY FROM ICU PHYSICAL ASSESSMENT REMAINS UNCHANGED THIS SHIFT. PT WORKED c PT TODAY. AMB IN ROOM c WALKER. USES WALKER AT BASELINE. ABLE TO MOVE INDEPENDENTLY IN ROOM, NEEDS ASSISTANCE GETTING REPOSITIONED IN BED. IVF D/C'D THIS SHIFT. STEWART CATH D/C'D. 3+ EDEMA TO LEGS BILATERALLY. IV LASIX GIVEN THIS AM. STATUS CHANGED TO MED s TELE BY DR MCCLENDON THIS SHIFT. WILL REPORT TO MEDICAL RN. ALL BELONGINGS TO GO c PT.
[2019-05-04 05:09] LABS: BASOPHILS ABSOLUTE AUTO 0.06 K/mm3 (0.00-0.23); BASOPHILS PERCENT AUTO 1 % (0-2); EOSINOPHILS ABSOLUTE AUTO 0.28 K/mm3 (0.00-0.68); EOSINOPHILS PERCENT AUTO 6 % (0-6); Hematocrit 25.3 % (33.0-51.0); Hemoglobin 8.8 g/dL (11.5-16.0); IMMATURE GRAN ABSOLUTE AUTO 0.02 K/mm3 (0.00-0.10); IMMATURE GRAN PERCENT AUTO 0 % (0-1); LYMPHOCYTES PERCENT AUTO 32 % (21-46); MONOCYTES ABSOLUTE AUTO 0.56 K/mm3 (0.16-1.47); MONOCYTES PERCENT AUTO 11 % (4-13); Mean Corpuscular HGB 33.1 pg (26.0-34.0); Mean Corpuscular HGB Conc 34.8 g/dL (31.5-36.5); Mean Corpuscular Volume 95 fL (80-100); Mean Platelet Volume 8.8 fL (9.1-12.4); NEUTROPHILS ABSOLUTE AUTO 2.52 K/mm3 (1.96-9.15); NEUTROPHILS PERCENT AUTO 50 % (41-73); Platelet Count 145 K/mm3 (150-400); RDW Standard Deviation 47.1 fL (35.1-46.3); Red Blood Cell Count 2.66 M/mm3 (3.80-5.20); White Blood Cell Count 5.04 K/mm3 (4.00-11.30)
[2019-05-04 05:25] LABS: Albumin, Blood 2.4 g/dL (3.4-5.0); Anion Gap 7 mmol/L (6-16); Blood Urea Nitrogen 11 mg/dL (8-24); CO2, Blood 26 mmol/L (21-32); Calcium, Blood 7.4 mg/dL (8.5-10.1); Chloride, Blood 103 mmol/L (98-108); Creatinine, Blood 0.55 mg/dL (0.40-1.00); Glomerular Filtration Rate >60 (60-); Glucose, Blood 75 mg/dL (70-99); Magnesium, Blood 1.3 mg/dL (1.6-2.4); Phosphorus, Blood 1.6 mg/dL (2.5-4.9); Potassium, Blood 3.7 mmol/L (3.5-5.5); Sodium, Blood 136 mmol/L (136-145)
--- NOTE | 2019-05-04 06:15 | NUR ---
SHIFT SUMMARY PATIENT ALERT AND ORIENTED. WAS VERY PLEASANT AND WAS ABLE TO SLEEP FAIRLY WELL OVERNIGHT. PATIENT HAD COMPLAINT OF PAIN IN HER LEFT LEG AND RECEIVED TWO DOSES OF PRN TYLENOL OVERNIGHT. UPON FOLLOW UP SHE WAS SLEEPING BOTH TIMES. PICC LINE PATENT, DRAWS, AND FLUSHES. BED IN LOWEST POSITION WITH WHEELS LOCKED. CALL LIGHT AND BELONGINGS WITHIN REACH. REPORT GIVEN TO ONCOMING RN.
[2019-05-04] MEDS ORDERED: ACET325 PO (13:44)
[2019-05-04] MEDS ORDERED: TUMS500 MG PO (13:45)
[2019-05-04] MEDS ORDERED: AMOCLA875 PO (13:45)
[2019-05-04] MEDS ORDERED: FURO20 PO (13:45)
[2019-05-04] MEDS ORDERED: ALLO100 PO (13:45)
[2019-05-04] MEDS ORDERED: K-Phos Origina500 MG PO (13:46)
[2019-05-04] MEDS ORDERED: Florastor250 MG PO (13:46)
[2019-05-04] MEDS ORDERED: Pedi-Dri 100,0060 GM TOP (13:46)
[2019-05-04] MEDS ORDERED: ONDA4ODT MM (13:46)
[2019-05-04] MEDS ORDERED: PERISHIELD100 GM TOP (13:47)
--- NOTE | 2019-05-04 14:40 | NUR ---
DISCHARGE SUMMARY PATIENT PLEASANT. ALERT AND ORIENTED. NO ACUTE CONCERNS AT THIS TIME. SPOUSE AT BEDSIDE WHILE DISCAHRGE INSTRUCTIONS WERE GIVEN. PATIENT HAS FOLLOW UP APPOINTMENT WITH HER DOCTOR TOMORROW. PATIENT ALSO HAS A FLLOW U PSCHEDULED WITH DR. MCDONNELL.
[2019-05-06 05:09] LABS: 25-HYDROXY, VITAMIN D 14 ng/mL (.); 25-HYDROXY, VITAMIN D-2 <1.0 ng/mL (.); 25-HYDROXY, VITAMIN D-3 14 ng/mL (.)
== END 2019-05-04 14:05 | disposition home or self-care (01) | DRG 683 ==
LOC: ER 18:55 → ICUE 21:46 → ICUW 21:46 → ICUE 21:52 → MEDS 05-03 17:16 → ENPENDDIS 05-04 11:00 → MEDS 05-04 14:05
PROVIDERS: Emergency Medicine; Family Medicine; Internal Medicine Nephrology; Nurse Practitioner Acute Care; ADMIT Internal Medicine
DX: N17.9 Acute kidney failure, unspecified (principal); A09 Infectious gastroenteritis and colitis, unspecified; E87.2 Acidosis; E87.1 Hypo-osmolality and hyponatremia; G93.40 Encephalopathy, unspecified; I95.9 Hypotension, unspecified; I12.9 Hypertensive chronic kidney disease with stage 1 through stage 4 chronic kidney disease, or unspecified chronic kidney disease; E11.22 Type 2 diabetes mellitus with diabetic chronic kidney disease; N18.3 Chronic kidney disease, stage 3 (moderate); E83.51 Hypocalcemia; E87.6 Hypokalemia; E83.42 Hypomagnesemia; E86.0 Dehydration; J44.9 Chronic obstructive pulmonary disease, unspecified; M10.9 Gout, unspecified; F32.9 Major depressive disorder, single episode, unspecified; F10.20 Alcohol dependence, uncomplicated; E86.9 Volume depletion, unspecified; D64.9 Anemia, unspecified; E88.09 Other disorders of plasma-protein metabolism, not elsewhere classified
CPT/HCPCS: 36415; 36416; 36569; 36600; 51702; 70450; 71046; 76770; 80048; 80053; 80069; 80400; 81001; 82010; 82140; 82306; 82330; 82533; 82550; 82803; 82947; 83605; 83735; 83880; 83930; 83970; 84100; 84145; 84439; 84443; 84481; 84484; 84550; 85025; 85027; 87040; 87804; 93005; 93010; 94640; 96361; 96374; 96375; 97162; 99285-25; A9270; C1751; G0480; J0610; J0834; J0881; J1650; J1940; J2405; J2543; J3411; J3475; J7030; J7040; J7042; J7050; J7060

== ENCOUNTER 2019-06-11 20:03 | Emergency (ER) | payer OTHER ==
[~2019-06-11] VITALS: Ht 165.1 cm; Wt 81.7 kg
[~2019-06-11 20:03] MED LIST changes: +ALBU2.5V5 NEB; +ALLO100 PO; +AMOCLA875 PO; +ATOR10 PO; +Aspirin EC81 MG PO; +CARV3.125 PO; +DULO30 PO; +Florastor250 MG PO; +HYDCHL12.5 PO; +HYDPAM25 PO; +K-Phos Origina500 MG PO; +MAGNESIUM400 M1 PO; +Multivitamin1 EAC1 PO; +OMEP20ER PO; +ONDA4ODT MM; +PERISHIELD100 GM TOP; +POTCHL20ER PO; +Pedi-Dri 100,0060 GM TOP; +SODCHL1 PO; +TUMS500 MG PO
[2019-06-11 21:07] LABS: BASOPHILS ABSOLUTE AUTO 0.03 K/mm3 (0.00-0.23); BASOPHILS PERCENT AUTO 0 % (0-2); EOSINOPHILS ABSOLUTE AUTO 0.02 K/mm3 (0.00-0.68); EOSINOPHILS PERCENT AUTO 0 % (0-6); Hematocrit 33.2 % (33.0-51.0); IMMATURE GRAN ABSOLUTE AUTO 0.02 K/mm3 (0.00-0.10); IMMATURE GRAN PERCENT AUTO 0 % (0-1); LYMPHOCYTES ABSOLUTE AUTO 1.98 K/mm3 (0.84-5.20); LYMPHOCYTES PERCENT AUTO 27 % (21-46); MONOCYTES ABSOLUTE AUTO 0.68 K/mm3 (0.16-1.47); MONOCYTES PERCENT AUTO 9 % (4-13); Mean Corpuscular HGB 33.2 pg (26.0-34.0); Mean Corpuscular HGB Conc 36.1 g/dL (31.5-36.5); Mean Corpuscular Volume 92 fL (80-100); Mean Platelet Volume 8.4 fL (9.1-12.4); NEUTROPHILS ABSOLUTE AUTO 4.49 K/mm3 (1.96-9.15); NEUTROPHILS PERCENT AUTO 62 % (41-73); Platelet Count 213 K/mm3 (150-400); RDW Coefficient Variation 13.7 % (11.7-14.2); RDW Standard Deviation 45.9 fL (35.1-46.3); Red Blood Cell Count 3.61 M/mm3 (3.80-5.20); White Blood Cell Count 7.22 K/mm3 (4.00-11.30)
[2019-06-11 21:28] LABS: Alanine Aminotransfer (ALT/SGP 49 U/L (12-78); Albumin, Blood 3.3 g/dL (3.4-5.0); Albumin/Globulin Ratio 0.9 (0.8-1.8); Alk Phos 89 U/L (50-136); Anion Gap 11 mmol/L (6-16); Aspartate Aminotrans (AST/SGOT 87 U/L (12-37); Bilirubin, Total 1.9 mg/dL (0.1-1.0); Blood Urea Nitrogen 4 mg/dL (8-24); Bun/Creatinine Ratio 10.3 (12.0-20.0); CO2, Blood 27 mmol/L (21-32); Calcium, Blood 7.7 mg/dL (8.5-10.1); Chloride, Blood 85 mmol/L (98-108); Creatinine, Blood 0.39 mg/dL (0.40-1.00); Ethanol (Alcohol), Blood, Med 299 mg/dL; Globulin, Blood 3.5 g/dL (2.2-4.0); Glomerular Filtration Rate >60 (60-); Glucose, Blood 93 mg/dL (70-99); Potassium, Blood 2.9 mmol/L (3.5-5.5); Sodium, Blood 123 mmol/L (136-145); Total Protein, Blood 6.8 g/dL (6.4-8.2)
== END 2019-06-11 22:03 | disposition home or self-care (01) ==
LOC: ER 20:03
PROVIDERS: Emergency Medicine
DX: F10.229 Alcohol dependence with intoxication, unspecified (principal); E87.6 Hypokalemia; Y90.8 Blood alcohol level of 240 mg/100 ml or more; E11.9 Type 2 diabetes mellitus without complications; N18.9 Chronic kidney disease, unspecified; J44.9 Chronic obstructive pulmonary disease, unspecified; Z87.891 Personal history of nicotine dependence
CPT/HCPCS: 36415; 70450; 80053; 85025; 99284-25; G0480

== ENCOUNTER 2019-09-10 13:40 | Emergency (ER) | payer OTHER ==
[~2019-09-10] VITALS: Ht 160 cm; Wt 81.7 kg
[2019-09-10 14:31] LABS: BASOPHILS ABSOLUTE AUTO 0.01 K/mm3 (0.00-0.23); BASOPHILS PERCENT AUTO 0 % (0-2); EOSINOPHILS PERCENT AUTO 0 % (0-6); Hematocrit 32.9 % (33.0-51.0); Hemoglobin 11.5 g/dL (11.5-16.0); IMMATURE GRAN ABSOLUTE AUTO 0.03 K/mm3 (0.00-0.10); IMMATURE GRAN PERCENT AUTO 1 % (0-1); LYMPHOCYTES ABSOLUTE AUTO 0.77 K/mm3 (0.84-5.20); LYMPHOCYTES PERCENT AUTO 16 % (21-46); MONOCYTES ABSOLUTE AUTO 0.49 K/mm3 (0.16-1.47); MONOCYTES PERCENT AUTO 10 % (4-13); Mean Corpuscular HGB 35.4 pg (26.0-34.0); Mean Corpuscular Volume 101 fL (80-100); Mean Platelet Volume 8.9 fL (9.1-12.4); NEUTROPHILS PERCENT AUTO 73 % (41-73); Platelet Count 153 K/mm3 (150-400); RDW Coefficient Variation 14.4 % (11.7-14.2); RDW Standard Deviation 52.8 fL (35.1-46.3); Red Blood Cell Count 3.25 M/mm3 (3.80-5.20)
[2019-09-10 14:56] LABS: Alanine Aminotransfer (ALT/SGP 105 U/L (12-78); Albumin, Blood 2.9 g/dL (3.4-5.0); Albumin/Globulin Ratio 0.8 (0.8-1.8); Alk Phos 153 U/L (50-136); Anion Gap 14 mmol/L (6-16); Aspartate Aminotrans (AST/SGOT 425 U/L (12-37); Bilirubin, Total 1.5 mg/dL (0.1-1.0); Blood Urea Nitrogen 5 mg/dL (8-24); Bun/Creatinine Ratio 10.5 (12.0-20.0); CO2, Blood 24 mmol/L (21-32); Calcium, Blood 8.6 mg/dL (8.5-10.1); Chloride, Blood 89 mmol/L (98-108); Creatinine, Blood 0.47 mg/dL (0.40-1.00); Globulin, Blood 3.6 g/dL (2.2-4.0); Glomerular Filtration Rate >60 (60-); Glucose, Blood 94 mg/dL (70-99); Potassium, Blood 4.8 mmol/L (3.5-5.5); Sodium, Blood 127 mmol/L (136-145); Total Protein, Blood 6.5 g/dL (6.4-8.2)
[2019-09-10] MEDS ORDERED: ONDA4ODT MM (17:12)
[2019-09-11 06:55] LABS: Calcium, Ionized (POC) 0.93 mmol/L (1.10-1.46); Chloride (POC) 90 mmol/L (98-108); Creatinine (POC) 0.5 mg/dL (0.6-1.0); Glucose (ISTAT POC) 75 mg/dL (70-99); Hemoglobin (POC) 11.2 g/dL (12.0-16.0); Potassium (POC) 3.7 mmol/L (3.5-5.5); Sodium (POC) 128 mmol/L (135-148); Total CO2 (POC) 25 mmol/L (21-32)
== END 2019-09-10 18:28 | disposition home or self-care (01) ==
LOC: ER 13:40
PROVIDERS: Emergency Medicine; Physician Assistant
DX: E87.1 Hypo-osmolality and hyponatremia (principal); E87.8 Other disorders of electrolyte and fluid balance, not elsewhere classified; F10.10 Alcohol abuse, uncomplicated; R51 Headache; Z91.030 Bee allergy status; Z88.1 Allergy status to other antibiotic agents; Z88.5 Allergy status to narcotic agent; Z88.8 Allergy status to other drugs, medicaments and biological substances; Z79.899 Other long term (current) drug therapy; J44.9 Chronic obstructive pulmonary disease, unspecified; F41.9 Anxiety disorder, unspecified; E11.22 Type 2 diabetes mellitus with diabetic chronic kidney disease; N18.9 Chronic kidney disease, unspecified; M10.9 Gout, unspecified; Z87.891 Personal history of nicotine dependence
CPT/HCPCS: 36415; 70450; 80047; 80053; 85014; 85025; 96361; 96374; 96375; 99284-25; J0780; J1200; J1885; J7030

== ENCOUNTER 2019-09-28 12:42 | Emergency (ER) | payer OTHER ==
[~2019-09-28] VITALS: Ht 162.6 cm; Wt 81.7 kg
[2019-09-28] MEDS ORDERED: METF500 PO (12:54)
[2019-09-28] MEDS ORDERED: MONT10T PO (12:55)
[2019-09-28] MEDS ORDERED: OMEP20ER PO (12:55)
[2019-09-28] MEDS ORDERED: CITA20 PO (12:56)
[2019-09-28] MEDS ORDERED: TIZA4 PO (12:56)
[2019-09-28 13:07] LABS: BASOPHILS ABSOLUTE AUTO 0.04 K/mm3 (0.00-0.23); BASOPHILS PERCENT AUTO 1 % (0-2); EOSINOPHILS PERCENT AUTO 2 % (0-6); Hematocrit 34.3 % (33.0-51.0); Hemoglobin 11.1 g/dL (11.5-16.0); IMMATURE GRAN ABSOLUTE AUTO 0.01 K/mm3 (0.00-0.10); IMMATURE GRAN PERCENT AUTO 0 % (0-1); LYMPHOCYTES PERCENT AUTO 30 % (21-46); MONOCYTES PERCENT AUTO 10 % (4-13); Mean Corpuscular HGB 36.5 pg (26.0-34.0); Mean Corpuscular HGB Conc 32.4 g/dL (31.5-36.5); Mean Corpuscular Volume 113 fL (80-100); Mean Platelet Volume 9.6 fL (9.1-12.4); NEUTROPHILS ABSOLUTE AUTO 2.92 K/mm3 (1.96-9.15); NEUTROPHILS PERCENT AUTO 58 % (41-73); Platelet Count 143 K/mm3 (150-400); Red Blood Cell Count 3.04 M/mm3 (3.80-5.20); White Blood Cell Count 5.07 K/mm3 (4.00-11.30)
[2019-09-28 13:26] LABS: Alanine Aminotransfer (ALT/SGP 127 U/L (12-78); Albumin, Blood 2.7 g/dL (3.4-5.0); Albumin/Globulin Ratio 0.8 (0.8-1.8); Alk Phos 165 U/L (50-136); Anion Gap 14 mmol/L (6-16); Aspartate Aminotrans (AST/SGOT 392 U/L (12-37); Bilirubin, Total 2.2 mg/dL (0.1-1.0); Blood Urea Nitrogen 3 mg/dL (8-24); Bun/Creatinine Ratio 6.8 (12.0-20.0); CO2, Blood 23 mmol/L (21-32); Calcium, Blood 7.8 mg/dL (8.5-10.1); Chloride, Blood 99 mmol/L (98-108); Creatinine, Blood 0.44 mg/dL (0.40-1.00); Globulin, Blood 3.5 g/dL (2.2-4.0); Glomerular Filtration Rate >60 (60-); Glucose, Blood 92 mg/dL (70-99); Potassium, Blood 4.3 mmol/L (3.5-5.5); Sodium, Blood 136 mmol/L (136-145); Total Protein, Blood 6.2 g/dL (6.4-8.2)
[2019-09-28 14:33] LABS: Magnesium, Blood 1.4 mg/dL (1.6-2.4); Troponin I <0.015 ng/mL (0.000-0.040)
[2019-09-28] MEDS ORDERED: B-1100 M1 PO (17:00)
[2019-09-28] MEDS ORDERED: PRENATAL MULTI1 EAC7 PO (17:00)
[2019-09-28] MEDS ORDERED: MAGOXI400 PO (17:00)
[2019-09-28] MEDS ORDERED: FOLI1 PO (17:00)
== END 2019-09-28 17:45 | disposition home or self-care (01) ==
LOC: ER 12:42
PROVIDERS: Emergency Medicine
DX: R53.1 Weakness (principal); R74.8 Abnormal levels of other serum enzymes; E83.42 Hypomagnesemia; F10.20 Alcohol dependence, uncomplicated; Y90.7 Blood alcohol level of 200-239 mg/100 ml; Z88.5 Allergy status to narcotic agent; Z88.1 Allergy status to other antibiotic agents; Z88.8 Allergy status to other drugs, medicaments and biological substances; Z91.030 Bee allergy status; Z79.899 Other long term (current) drug therapy; Z79.84 Long term (current) use of oral hypoglycemic drugs; E11.22 Type 2 diabetes mellitus with diabetic chronic kidney disease; N18.9 Chronic kidney disease, unspecified; J44.9 Chronic obstructive pulmonary disease, unspecified; F41.9 Anxiety disorder, unspecified; M10.9 Gout, unspecified; Z87.891 Personal history of nicotine dependence
CPT/HCPCS: 36415; 80053; 82140; 82800; 83690; 83735; 84484; 85025; 93005; 93010; 99283-25; G0480; J3411; J3475; J7042

== ENCOUNTER 2019-12-08 16:58 | Observation (INO) | payer OTHER ==
[~2019-12-08] VITALS: Ht 162.6 cm; Wt 80.9 kg
[~2019-12-08 16:58] MED LIST changes: +B-1100 M1 PO; +Bisoprolol Fumar5 MG PO; +CALC.25 PO; +CHLO25; +ESTRADIOL42.5 GM VAG; +FERREX 150150 M1 PO; +FOLI1 PO; +MAGOXI400 PO; +Oxycodone HCl5 M1 PO; +POTA10T PO; +PRENATAL MULTI1 EAC7 PO; +SPIR25 PO; +TIZA4 PO
[2019-12-08 17:21] LABS: BASOPHILS ABSOLUTE AUTO 0.06 K/mm3 (0.00-0.23); BASOPHILS PERCENT AUTO 1 % (0-2); EOSINOPHILS ABSOLUTE AUTO 0.06 K/mm3 (0.00-0.68); EOSINOPHILS PERCENT AUTO 1 % (0-6); Hematocrit 37.5 % (33.0-51.0); Hemoglobin 12.6 g/dL (11.5-16.0); IMMATURE GRAN ABSOLUTE AUTO 0.02 K/mm3 (0.00-0.10); IMMATURE GRAN PERCENT AUTO 0 % (0-1); LYMPHOCYTES ABSOLUTE AUTO 2.98 K/mm3 (0.84-5.20); LYMPHOCYTES PERCENT AUTO 39 % (21-46); MONOCYTES ABSOLUTE AUTO 0.51 K/mm3 (0.16-1.47); MONOCYTES PERCENT AUTO 7 % (4-13); Mean Corpuscular HGB 33.2 pg (26.0-34.0); Mean Corpuscular HGB Conc 33.6 g/dL (31.5-36.5); Mean Corpuscular Volume 99 fL (80-100); Mean Platelet Volume 9.3 fL (9.1-12.4); NEUTROPHILS PERCENT AUTO 52 % (41-73); Platelet Count 225 K/mm3 (150-400); RDW Coefficient Variation 14.3 % (11.7-14.2); RDW Standard Deviation 51.7 fL (35.1-46.3); Red Blood Cell Count 3.79 M/mm3 (3.80-5.20); White Blood Cell Count 7.63 K/mm3 (4.00-11.30)
[2019-12-08 17:42] LABS: Albumin, Blood 2.6 g/dL (3.4-5.0); Albumin/Globulin Ratio 0.6 (0.8-1.8); Alk Phos 128 U/L (50-136); Anion Gap 12 mmol/L (6-16); Aspartate Aminotrans (AST/SGOT 213 U/L (12-37); Bilirubin, Total 1.5 mg/dL (0.1-1.0); Blood Urea Nitrogen 1 mg/dL (8-24); Bun/Creatinine Ratio 1.9 (12.0-20.0); CO2, Blood 26 mmol/L (21-32); Calcium, Blood 7.5 mg/dL (8.5-10.1); Chloride, Blood 102 mmol/L (98-108); Creatinine, Blood 0.54 mg/dL (0.40-1.00); Globulin, Blood 4.4 g/dL (2.2-4.0); Glomerular Filtration Rate >60 (60-); Glucose, Blood 95 mg/dL (70-99); Potassium, Blood 3.7 mmol/L (3.5-5.5); Sodium, Blood 140 mmol/L (136-145)
[2019-12-08 17:58] LABS: Alanine Aminotransfer (ALT/SGP 36 U/L (12-78)
[2019-12-08 18:00] LABS: Magnesium, Blood 1.1 mg/dL (1.6-2.4)
--- NOTE | 2019-12-09 03:21 | NUR ---
PAIN AT 0300 PT REPORTING SUBSTERNAL CHEST PAIN, STATES SHE HAS BEEN HAVING THIS PAIN OFF & ON FOR THE PAST 3 DAYS. VITALS ARE STABLE. TELE ST @112. REPORTING NAUSEA. MEDICATED c COMPAZINE PER ORDER, DISCUSSED c CHARGE NURSE HAYLEY GUTHRIE PT.
[2019-12-09 05:04] LABS: Anion Gap 11 mmol/L (6-16); Blood Urea Nitrogen 2 mg/dL (8-24); Bun/Creatinine Ratio 4.7 (12.0-20.0); CO2, Blood 26 mmol/L (21-32); Calcium, Blood 7.2 mg/dL (8.5-10.1); Chloride, Blood 100 mmol/L (98-108); Creatinine, Blood 0.43 mg/dL (0.40-1.00); Glomerular Filtration Rate >60 (60-); Glucose, Blood 118 mg/dL (70-99); Magnesium, Blood 1.6 mg/dL (1.6-2.4); Potassium, Blood 2.9 mmol/L (3.5-5.5); Sodium, Blood 137 mmol/L (136-145)
--- NOTE | 2019-12-09 05:45 | NUR ---
SHIFT SUMMARY NEW ADMIT TO FLOOR LAST NIGHT FOR SYNCOPE @HOME. AOX3-FORGETFUL, UNAWARE MONTH OR PRESIDENT. STATES IT'S JANUARY. FOLLOWS DIRECTIONS. REPORTED NAUSEA MEDICATED 1X c ZOFRAN & 1X c COMPAZINE, PT STATED RELIEF AFTER RECIEVING COMPAZINE. PT ALSO REPORTED SUBSTERNAL DISCOMFORT/PAIN, STATED CHEST PAIN WAS BETTER AFTER RECIEVING COMPAZINE. DENIES DYSPNEA. REPORTED PAIN c HEADACHE & BLE NEUROPATHY, STATED RELIEF AFTER RECIEVING ULTRAM. REPORTED DRINKING @LEAST [address] @102. CALL LIGHT IN REACH. TM.
--- NOTE | 2019-12-09 15:35 | NUR ---
SHIFT SUMMARY PT RESTING QUIETLY AT START OF SHIFT. ADMITTED DURING THE NIGHT FOR SYMCOPE AND COLAPSE. PER REPORT, PT DRINKS HEAVILY ON A DAILY BASIS. SINCE WAKING UP THIS AM, PT HAS BEEN MORE ALERT AND HAS BEEN ABLE TO WALK TO BTHRM INSTEAD OF USING BSC. PT USES FWW AND 1P ASSIST, CALLING APPROPRIATELY. PT HAS BEEN UP TO CHAIR FOR MEALS. BED BATH AND LINEN CHANGE DONE. BANANA BAG GIVEN IN ER AND AGAIN THIS AM. PT NOW SL. SS IN TO TALK WITH PT TODAY, OFFERING ASSISTANCE AND ENCOURAGING ALCOHOL TX PROGRAMS AVAILABLE. PT DECLINED. PT REPORTED THAT SHE HAD TRIED THEM ALL AND WILL NOW TRY TO STOP ON HER OWN. PT'S WENT TO IN/PT ALCOHOL TX PROGRAM TODAY. FAMILY TO ASSIST AND SUPERVISE PT AT HOME WHILE IS GONE. PT MEDICATED FOR C/O NEUROPATHY PAIN FROM KNEES ON DOWN. DR CALDWELL TO SEE PT SHORTLY. RESTING QUIETLY IN BED AT THIS TIME. CALL LT IN REACH.
--- NOTE | 2019-12-09 18:08 | NUR ---
DR CALDWELL IN TO SEE PT. PAIN MEDICATION CHANGED PER PT REQUEST FOR C/O NEUROPATHY-LEG PAIN. OXYCODONE ORDERED AND ADMIN. PT REPORTED IT EFFECTIVE. DR CALDWELL REPORTED PT TO STAY ONE MORE NIGHT. PT INFORMED. PT'S DAUGHTER WANTED UPDATED ON PT STATUS AFTER DR CALDWELL HERE. PT STATED THAT SHE WOULD CALL HER DAUGHTER INSTEAD. THIS RN OFFERED TO CALL DAUGHTER, BUT PT DECLINED, AT LEAST FOR NOW. PT HAS C/O HRT BURN EARLIER IN THE DAY. TUMS ORDERED AND GIVEN PER EMAR. NO FURTHER C/O. DENIED FURTHER NEEDS.
--- NOTE | 2019-12-10 03:48 | NUR ---
SHIFT SUMMARY AOX4. VSS. TELE ST c PVC @110. DENIES N/V OR DYSPNEA. REPORTS 4/10 MENDOZA & NEUROPATHY PAIN BUT DENIED NEED FOR PAIN MEDICATION. REPORTED HEARTBURN, GAVE TUMS PER ORDERS. HAS SLEPT WELL T/O NIGHT. CALL LIGHT IN REACH. WCTM.
[2019-12-10 04:59] LABS: BASOPHILS ABSOLUTE AUTO 0.04 K/mm3 (0.00-0.23); BASOPHILS PERCENT AUTO 1 % (0-2); EOSINOPHILS ABSOLUTE AUTO 0.16 K/mm3 (0.00-0.68); EOSINOPHILS PERCENT AUTO 2 % (0-6); Hematocrit 37.3 % (33.0-51.0); Hemoglobin 12.3 g/dL (11.5-16.0); IMMATURE GRAN ABSOLUTE AUTO 0.01 K/mm3 (0.00-0.10); IMMATURE GRAN PERCENT AUTO 0 % (0-1); LYMPHOCYTES PERCENT AUTO 32 % (21-46); MONOCYTES ABSOLUTE AUTO 0.58 K/mm3 (0.16-1.47); MONOCYTES PERCENT AUTO 9 % (4-13); Mean Corpuscular HGB 33.2 pg (26.0-34.0); Mean Corpuscular Volume 101 fL (80-100); Mean Platelet Volume 9.2 fL (9.1-12.4); NEUTROPHILS ABSOLUTE AUTO 3.85 K/mm3 (1.96-9.15); NEUTROPHILS PERCENT AUTO 56 % (41-73); Platelet Count 191 K/mm3 (150-400); RDW Coefficient Variation 14.1 % (11.7-14.2); RDW Standard Deviation 52.3 fL (35.1-46.3); White Blood Cell Count 6.84 K/mm3 (4.00-11.30)
[2019-12-10 05:28] LABS: Alanine Aminotransfer (ALT/SGP 35 U/L (12-78); Albumin, Blood 2.8 g/dL (3.4-5.0); Albumin/Globulin Ratio 0.7 (0.8-1.8); Alk Phos 137 U/L (50-136); Anion Gap 7 mmol/L (6-16); Aspartate Aminotrans (AST/SGOT 130 U/L (12-37); Bilirubin, Total 2.3 mg/dL (0.1-1.0); Blood Urea Nitrogen 4 mg/dL (8-24); Bun/Creatinine Ratio 5.2 (12.0-20.0); CO2, Blood 27 mmol/L (21-32); Calcium, Blood 7.9 mg/dL (8.5-10.1); Chloride, Blood 99 mmol/L (98-108); Creatinine, Blood 0.77 mg/dL (0.40-1.00); Globulin, Blood 4.3 g/dL (2.2-4.0); Glomerular Filtration Rate >60 (60-); Glucose, Blood 104 mg/dL (70-99); Magnesium, Blood 1.6 mg/dL (1.6-2.4); Potassium, Blood 3.1 mmol/L (3.5-5.5); Sodium, Blood 133 mmol/L (136-145); Total Protein, Blood 7.1 g/dL (6.4-8.2)
[2019-12-10] MEDS ORDERED: OXAYDO5 MG PO (14:48)
== END 2019-12-10 16:05 | disposition home health service (06) ==
LOC: ER 16:58 → MEDS 16:59
PROVIDERS: Emergency Medicine; Internal Medicine; ADMIT Internal Medicine
DX: R55 Syncope and collapse (principal); K29.20 Alcoholic gastritis without bleeding; E11.22 Type 2 diabetes mellitus with diabetic chronic kidney disease; N18.9 Chronic kidney disease, unspecified; G62.1 Alcoholic polyneuropathy; J44.9 Chronic obstructive pulmonary disease, unspecified; E83.42 Hypomagnesemia; F10.10 Alcohol abuse, uncomplicated; Y90.9 Presence of alcohol in blood, level not specified; Z88.5 Allergy status to narcotic agent; Z88.1 Allergy status to other antibiotic agents; Z91.038 Other insect allergy status; Z88.8 Allergy status to other drugs, medicaments and biological substances; Z79.899 Other long term (current) drug therapy; Z87.891 Personal history of nicotine dependence
CPT/HCPCS: 36415; 80048; 80053; 82607; 82947; 83735; 85025; 93005; 93010; 96361; 96365; 96366; 96367; 96372; 96375; 96376; 97110; 97116; 97162; 97166; 97530; 99285-25; A9270; A9270-GY; G0378; J0780; J1650; J2405; J3411; J3475; J7030; J7042; Q0163

== ENCOUNTER 2020-01-30 11:38 | Emergency (ER) | payer OTHER ==
[~2020-01-30] VITALS: Ht 172.7 cm; Wt 97.5 kg
[~2020-01-30 11:38] MED LIST changes: +OXAYDO5 MG PO
--- NOTE | 2020-01-30 12:21 | NUR ---
Called in to provide prayer and scholarship counselor to Narda's family post morde. Spouse quite distraught. Dtr tearful, but appropriate. Interventions well recieved. Family selected [facility] for arrangements.
== END 2020-01-30 14:00 ==
LOC: ER 11:38
DX: I46.9 Cardiac arrest, cause unspecified (principal); F41.9 Anxiety disorder, unspecified; J45.909 Unspecified asthma, uncomplicated; E11.22 Type 2 diabetes mellitus with diabetic chronic kidney disease; J44.9 Chronic obstructive pulmonary disease, unspecified; N18.9 Chronic kidney disease, unspecified; Z87.891 Personal history of nicotine dependence; Z91.030 Bee allergy status; Z88.1 Allergy status to other antibiotic agents; Z88.5 Allergy status to narcotic agent; Z88.8 Allergy status to other drugs, medicaments and biological substances; Z79.899 Other long term (current) drug therapy
CPT/HCPCS: 94770; 99285-25